=== PATIENT | male | born 1945 | race Caucasian/White ===

== ENCOUNTER 2016-10-07 18:26 | Emergency (ER) | payer BC, MEDICARE ==
[~2016-10-07] VITALS: Ht 167.6 cm; Wt 108.0 kg
[~2016-10-07 18:26] MED LIST: AMLO5TAB22 PO; ASPI81TA82 PO; ATOR40TA PO; CARV6.25 PO; COZA50TA PO; FENO1TAB76 PO; GLUC2.5T2 PO; ISOS30TA3 PO; LORTA5 PO; OMEG5CAP PO; RIVA10 PO; SAW450CA2 PO; TAB-TAB PO; TICA90 PO; TRAV0.00 EACH EYE; Z.0.WALKERFRONT
[2016-10-07 18:30] VITALS: BP 210/99; PULSE 87; RESP 20; TEMP 99.4; O2SAT 97
--- NOTE | 2016-10-07 18:51 | PD ---
HPI . right leg pain since Monday Chief Complaint: right leg pain Time Seen by Provider: 18:51 Travel History International Travel<30 days: No Contact w/Intl Traveler<30days: No Traveled to known affect area: No History of Present Illness HPI 71-year-old male with history of hypertension, hyperlipidemia and diabetes here with complaints of right leg pain since Monday. Patient tells me that he got into some type of unknown plant on Monday and thinks that it is causing irritation to his right lower extremity. He tells me that he saw his primary care provider Dr. Sanjiv Macdonald and was given muscle relaxers and oxycodone, which are not providing any relief. Patient reports that his pain is 10/10 and located mainly in the right anterior lower extremity. The area is tender to touch. He also admits that there was some increased warmth over the past day, but has since seemed to improve. He also has elevated blood pressure. He denies any rash, fever, chills, nausea, vomiting, abdominal pain, chest pain or shortness of breath. He has no other complaints. He has not traveled long distances recently. PFSH Past Medical History Blood Disorders: No Cancer: No Cardiovascular Problems: Yes (STENTS) Chemotherapy: No Chest Pain: No Diabetes: Yes Endocrine: No Gastrointestinal Disorders: No Glaucoma: Yes Genitourinary: No Hepatitis: No Hiatal Hernia: Yes Hypertension: Yes Immune Disorder: No Musculoskeletal: Yes (ARTHRITIS, BACK ISSUES) Neurologic: Yes (TIA) Psychiatric: No Reproductive: No Respiratory: Yes (SLEEP APNEA/ CPAP) Integumentary: No Radiation Therapy: No Thyroid Disease: No Past Surgical History Abdominal Surgery: Yes (UMB. HERNIA REP., APPY) AICD: No Body Medical Devices: CARDIAC STENTS Joint Replacement: No Pacemaker: No Social History Alcohol Use: Yes Tobacco Use: Yes (FORMER) Substance Use: No Allergies-Medications (Allergen,Severity, Reaction): Coded Allergies: No Known Allergies (Verified , 10/07/16) Reported Meds & Prescriptions Reported Meds & Active Scripts Active Xarelto Starter Pack 15 & 20 mg (Rivaroxaban) 1 Tab Tab 1 Tab PO DIRECTED 30 Days Reported Saw [place] 500 Mg Capsule 450 Travatan Z Opth Drops (Travoprost) 0.004 % Soln 1 Drop EACH EYE HS Fish Oil ([place]-3 Fatty Acids) 1,000 Mg Cap 1,200 Aspirin 81 (Aspirin) 81 Mg Tabdr 81 Mg PO DAILY Atorvastatin (Atorvastatin Calcium) 80 Mg Tab 80 Mg PO HS Glyburide-Metformin 2.5-500 Mg Tab 1 Tab PO DAILY Take with a meal Isosorbide Mononitrate ER (Isosorbide Mononitrate) 30 Mg Dean 30 Mg PO DAILY Clopidogrel (Clopidogrel Bisulfate) 75 Mg Tab 75 Mg PO DAILY Amlodipine (Amlodipine Besylate) 5 Mg Tab 5 Mg PO DAILY Carvedilol 6.25 Mg Tab 6.25 Mg PO BID Review of Systems General / Constitutional: No: Fever Eyes: No: Visual changes HENT: No: Headaches Cardiovascular: No: Chest Pain or Discomfort Respiratory: No: Shortness of Breath Gastrointestinal: No: Abdominal Pain Genitourinary: No: Dysuria Musculoskeletal: Positive: Pain (right lower ext.) Skin: No Rash Neurologic: No: Weakness Psychiatric: No: Depression Endocrine: No: Polydipsia Hematologic/Lymphatic: No: Easy Bruising Physical Exam Narrative GENERAL: AAO x 3, no acute distress, Well-nourished, well-developed patient. SKIN: Warm and dry. No visible rashes or bruising. No visible rash and to the right lower extremity. HEAD: Normocephalic and atraumatic. EYES: No scleral icterus. No injection or drainage. EOM intact, PERRLA ENT: No nasal drainage noted. Mucous membranes pink. Airway patent. NECK: Supple, trachea midline. No JVD. CARDIOVASCULAR: Regular rate and rhythm without murmurs, gallops, or rubs. RESPIRATORY: Breath sounds equal bilaterally. No accessory muscle use. No rhonchi or rales. GASTROINTESTINAL: Abdomen soft, non-tender, nondistended. EXTREMITIES: No cyanosis or edema. Right lower extremity calf circumference is larger compared to left, there is slight increase in warmth of the right lower extremity, pedal pulses intact bilaterally. Sensation normal bilaterally. Strength is normal bilaterally in the lower extremities. There is some tenderness in the popliteal fossa on the right lower extremity. BACK: No obvious deformity. No CVA tenderness. NEURO: CN II-12 intact, double end sewer strength normal b/l, UE and LE 5/5, no focal deficits PSYCH: AAO x 3, normal affect. Data Data Last Documented VS Vital Signs Date Time Temp Pulse Resp B/P Pulse Ox O2 Delivery O2 Flow Rate FiO2 10/07/16 22:25 84 18 171/82 99 Room Air 10/07/16 18:30 99.4 Orders Complete Blood Count With Diff (10/07/16 18:51) Comprehensive Metabolic Panel (10/07/16 18:51) Lactic Acid Sepsis Protocol (10/07/16 18:51) Urinalysis - C+S If Indicated (10/07/16 18:51) Blood Culture (10/07/16 18:51) Chest, Single Ap (10/07/16 18:51) Blood Glucose (10/07/16 18:51) Ecg Monitoring (10/07/16 18:51) Iv Access Insert/Monitor (10/07/16 18:51) Oximetry (10/07/16 18:51) Oxygen Administration (10/07/16 18:51) Us Leg Venous Doppler (10/07/16 18:51) Morphine Inj (Morphine Inj) (10/07/16 19:30) Rivaroxaban (Xarelto) (10/07/16 22:00) Labs Laboratory Tests Test 10/07/16 19:20 White Blood Count 11.8 TH/MM3 Red Blood Count 5.02 MIL/MM3 Hemoglobin 14.3 GM/DL Hematocrit 42.5 % Mean Corpuscular Volume 84.6 FL Mean Corpuscular Hemoglobin 28.5 PG Mean Corpuscular Hemoglobin 33.6 % Concent Red Cell Distribution Width 13.8 % Platelet Count 179 TH/MM3 Mean Platelet Volume 9.4 FL Neutrophils (%) (Auto) 75.0 % Lymphocytes (%) (Auto) 12.8 % Monocytes (%) (Auto) 10.2 % Eosinophils (%) (Auto) 1.8 % Basophils (%) (Auto) 0.2 % Neutrophils # (Auto) 8.9 TH/MM3 Lymphocytes # (Auto) 1.5 TH/MM3 Monocytes # (Auto) 1.2 TH/MM3 Eosinophils # (Auto) 0.2 TH/MM3 Basophils # (Auto) 0.0 TH/MM3 CBC Comment DIFF FINAL Differential Comment Sodium Level 137 MEQ/L Potassium Level 3.9 MEQ/L Chloride Level 103 MEQ/L Carbon Dioxide Level 24.8 MEQ/L Anion Gap 9 MEQ/L Blood Urea Nitrogen 20 MG/DL Creatinine 1.13 MG/DL Estimat Glomerular Filtration 64 ML/MIN Rate Random Glucose 134 MG/DL Lactic Acid Level 1.5 mmol/L Calcium Level 9.6 MG/DL Total Bilirubin 0.8 MG/DL Aspartate Amino Transf 68 U/L (AST/SGOT) Alanine Aminotransferase 57 U/L (ALT/SGPT) Alkaline Phosphatase 97 U/L Total Protein 7.9 GM/DL Albumin 3.9 GM/DL MDM Medical Decision Making Medical Screen Exam Complete: Yes Emergency Medical Condition: Yes Medical Record Reviewed: Yes Differential Diagnosis Agee cyst, DVT, cellulitis, allergic reaction Narrative Course 71-year-old male here with complaints of right lower extremity pain since Monday. On examination he does have a larger circumference of this right lower extremities compared to left. There is tenderness in the area. Workup is in progress. I've ordered labs and ultrasound. Patient could have a DVT versus allergic reaction versus Agee cyst. His blood pressure is elevated, but this is likely related to his pain that he reports is 10/10. I have provided him some morphine here in the emergency department. Case has been discussed with my attending physician Dr. Townsend. Venous Doppler of the lower extremity appreciated. Labs reviewed and appreciated. Mild elevation of WBC, which is likely reactive. I do not suspect infection. Laboratory Tests Test 10/07/16 19:20 White Blood Count 11.8 TH/MM3 Red Blood Count 5.02 MIL/MM3 Hemoglobin 14.3 GM/DL Hematocrit 42.5 % Mean Corpuscular Volume 84.6 FL Mean Corpuscular Hemoglobin 28.5 PG Mean Corpuscular Hemoglobin 33.6 % Concent Red Cell Distribution Width 13.8 % Platelet Count 179 TH/MM3 Mean Platelet Volume 9.4 FL Neutrophils (%) (Auto) 75.0 % Lymphocytes (%) (Auto) 12.8 % Monocytes (%) (Auto) 10.2 % Eosinophils (%) (Auto) 1.8 % Basophils (%) (Auto) 0.2 % Neutrophils # (Auto) 8.9 TH/MM3 Lymphocytes # (Auto) 1.5 TH/MM3 Monocytes # (Auto) 1.2 TH/MM3 Eosinophils # (Auto) 0.2 TH/MM3 Basophils # (Auto) 0.0 TH/MM3 CBC Comment DIFF FINAL Differential Comment Sodium Level 137 MEQ/L Potassium Level 3.9 MEQ/L Chloride Level 103 MEQ/L Carbon Dioxide Level 24.8 MEQ/L Anion Gap 9 MEQ/L Blood Urea Nitrogen 20 MG/DL Creatinine 1.13 MG/DL Estimat Glomerular Filtration 64 ML/MIN Rate Random Glucose 134 MG/DL Lactic Acid Level 1.5 mmol/L Calcium Level 9.6 MG/DL Total Bilirubin 0.8 MG/DL Aspartate Amino Transf 68 U/L (AST/SGOT) Alanine Aminotransferase 57 U/L (ALT/SGPT) Alkaline Phosphatase 97 U/L Total Protein 7.9 GM/DL Albumin 3.9 GM/DL Last Impressions Lower Extremity Ultrasound 10/07/161850 Signed Impressions: Service Date/Time: Friday, October 07, 2016 19:45 - CONCLUSION: 1. Thrombus is limited to partially occlusive thrombus the right peroneal vein. The remainder of the deep veins are patent in the right lower extremity. Prieto Velazquez MD Chest X-Ray 10/07/161850 Signed Impressions: Service Date/Time: Friday, October 07, 2016 19:04 - CONCLUSION: No acute disease. Prieto Velazquez MD Patient has not been on Xarelto nor has he failed outpatient therapy. He was on Xarelto years ago when he received a knee replacement. He is familiar with the drug and how to use it. We will provide him with a dose of Xarelto here in the emergency department and sent him home with a starter pack. He has been advised to follow-up with his primary care provider. Case has been discussed with my attending Dr. Townsend and we are both in agreement. Patient verbalized understanding of instructions, questions were answered, and thanked me for their care. I advised them if their condition worsens, please return to the nearest emergency room for further care. Diagnosis Primary Impression: DVT (deep venous thrombosis) Qualified Code: I82.401 - Acute deep vein thrombosis (DVT) of right lower extremity, unspecified vein Additional Impression: Right leg pain Patient Instructions: General Instructions Additional Instructions: Please return to emergency department if your symptoms return or worsen. Follow up with your primary care provider. Take medications as prescribed. Follow-up with your primary care provider as we discussed. Return to the emergency department for any worsening of your condition. Scripts Rivaroxaban Starter Pack 15 & 20 mg (Xarelto Starter Pack 15 & 20 mg)1 Tab Tab1 Tab PO DIRECTED 30 Days Ref 0 Prov:Brayan Alves MD 10/07/16 Disposition: 01 DISCHARGE HOME Condition: Stable Marietta Awan Oct 07, 2016 18:51
--- NOTE | 2016-10-07 19:23 | RADRPT ---
EXAM DATE/TIME: 10/07/2016 19:04 [facility] COMPARISON: No previous studies available for comparison. INDICATIONS : Cough and shortness of breath. MEDICAL HISTORY : None. SURGICAL HISTORY : 4 cardiac stents. ENCOUNTER: Initial ACUITY: 1 day PAIN SCORE: Non-responsive. LOCATION: chest FINDINGS: A single view of the chest demonstrates the lungs to be symmetrically aerated without evidence of mas s, infiltrate or effusion. The cardiomediastinal contours are unremarkable. Osseous structures are intact. CONCLUSION: No acute disease. Prieto Velazquez MD on October 07, 2016 at 19:21 Board Certified Radiologist. This report was verified electronically.
[2016-10-07] MEDS ORDERED: MORPHINE SULFATE 4 MG/ML INJ IV PUSH ONE (19:30)
[2016-10-07 19:50] LABS: AUTOMATED NEUTROPHIL # 8.9 TH/MM3 (1.8-7.7); BASOPHIL % 0.2 % (0.0-2.0); EOSINOPHIL # 0.2 TH/MM3 (0-0.4); EOSINOPHIL % 1.8 % (0.0-4.0); HEMATOCRIT 42.5 % (39.0-51.0); HEMO FLAGS DIFF FINAL; LYMPH % 12.8 % (9.0-44.0); LYMPHOCYTE # 1.5 TH/MM3 (1.0-4.8); MEAN CELL VOLUME 84.6 FL (80.0-100.0); MEAN CORPUSCULAR HEMOGLOBIN 28.5 PG (27.0-34.0); MEAN CORPUSCULAR HGB CONC 33.6 % (32.0-36.0); MONO % 10.2 % (0.0-8.0); PLATELET COUNT 179 TH/MM3 (150-450); RED BLOOD COUNT 5.02 MIL/MM3 (4.50-5.90); RED CELL DISTRIBUTION WIDTH 13.8 % (11.6-17.2); WHITE BLOOD COUNT 11.8 TH/MM3 (4.0-11.0)
[2016-10-07 20:00] VITALS: BP 192/97; PULSE 84; RESP 20; O2SAT 100
[2016-10-07 20:09] LABS: ALT (GPT) 57 U/L (12-78); ANION GAP 9 MEQ/L (5-15); AST (GOT) 68 U/L (15-37); BICARBONATE 24.8 MEQ/L (21.0-32.0); BLOOD UREA NITROGEN 20 MG/DL (7-18); CHLORIDE 103 MEQ/L (98-107); GLOMERULAR FILTRATION RATE 64 ML/MIN (>89); POTASSIUM 3.9 MEQ/L (3.5-5.1); SODIUM (NA) 137 MEQ/L (136-145)
[2016-10-07 20:12] LABS: ALKALINE PHOSPHATASE 97 U/L (45-117); TOTAL BILIRUBIN ADULT 0.8 MG/DL (0.2-1.0)
[2016-10-07 21:15] VITALS: BP 184/92; PULSE 90; RESP 18; O2SAT 98
--- NOTE | 2016-10-07 21:34 | RADRPT ---
EXAM DATE/TIME: 10/07/2016 19:45 [facility] COMPARISON: No previous studies available for comparison. INDICATIONS : Right leg pain. MEDICAL HISTORY : Hypertension. Glaucoma. Transient ischemic attack. Cerebrovascular accident. Ulcer. Hernia, hiatal. Diabetes. SURGICAL HISTORY : Appendectomy. Umbilical hernia repair. ENCOUNTER: Initial ACUITY: 4 - 6 days PAIN SCORE: 8/10 LOCATION: Right leg. TECHNIQUE: Venous ultrasound of the leg was performed from the inguinal ligament to the proximal calf. Real-elisabeth e, color Doppler and spectral tracing, compression and augmentation techniques were used. FINDINGS: The examination is positive for nonocclusive thrombus in the right peroneal vein. Remainder of the de ep veins are patent. No superficial thrombus. CONCLUSION: 1. Thrombus is limited to partially occlusive thrombus the right peroneal vein. The remainder of the deep veins are patent in the right lower extremity. Prieto Velazquez MD on October 07, 2016 at 21:30 Board Certified Radiologist. This report was verified electronically.
[2016-10-07] MEDS ORDERED: CARV6.252 PO (21:58)
[2016-10-07] MEDS ORDERED: ISOS30TA3 PO (21:58)
[2016-10-07] MEDS ORDERED: ASPI-110 PO (21:58)
[2016-10-07] MEDS ORDERED: CLOP75TA PO (21:58)
[2016-10-07] MEDS ORDERED: AMLO5TAB2 PO (21:58)
[2016-10-07] MEDS ORDERED: FISH1000 (21:58)
[2016-10-07] MEDS ORDERED: GLYB1TAB93 PO (21:58)
[2016-10-07] MEDS ORDERED: SAW500CA (21:58)
[2016-10-07] MEDS ORDERED: TRAV0.00 EACH EYE (21:58)
[2016-10-07] MEDS ORDERED: ATOR1TAB18 PO (21:58)
[2016-10-07] MEDS ORDERED: RIVAROXABAN 15 MG TAB PO ONE (22:00)
[2016-10-07] MEDS ORDERED: RIVA1TAB PO (22:12)
[2016-10-07 22:25] VITALS: BP 171/82; PULSE 84; RESP 18; O2SAT 99
== END 2016-10-07 22:45 | disposition home or self-care (01) ==
LOC: NEPC 18:26
DX: I82.401 Acute embolism and thrombosis of unspecified deep veins of right lower extremity (principal); I10 Essential (primary) hypertension; Z79.01 Long term (current) use of anticoagulants; Z79.82 Long term (current) use of aspirin; Z87.891 Personal history of nicotine dependence
CPT/HCPCS: 71010; 80053; 83605; 85025; 87040; 93971; 96374; 99285; J2270

== ENCOUNTER 2017-05-03 05:16 | Inpatient (IN) | payer BC, MEDICARE ==
--- NOTE | 2017-04-28 16:27 | MH ---
cc: MERI JERNIGAN DATE OF ADMISSION: 05/03/2017 ADMITTING DIAGNOSIS: 1. Severe osteoarthritis of the right hip. 2. Pain right hip. 3. 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 4. Gait disturbance. HISTORY OF PRESENT ILLNESS: The patient is a 72-year-old white male who has experienced pain of his right hip of at least one year duration. He had associated the onset of his symptoms secondary to a fall which occurred at home where after he was able to arise and ambulate independently. There was no immediate pain noted and the patient did not seek any initial evaluation but did note some soreness that he localized to the anterior aspect of his hip. His symptoms tended to wax and wane over the following few months during which time he was taking Tylenol for pain relief. He presented to the undersigned physician in August of this past year noting lingering pain about the hip area at which time x-ray studies were completed identifying moderate degenerative changes of the hip joint with significant narrowing of the joint space but no acute bony abnormality noted. The patient was diagnosed as having osteoarthritis of his right hip for which treatment alternatives were reviewed. He was encouraged to utilize Extra-Strength Tylenol noting that his current medications had included Plavix. He continued to conform to conservative management thereafter but returned to the office in February of 2017 reporting that with the passage of time he was becoming progressively more symptomatic with pain that had begun to interfere with all ambulatory activities. He had continued to use Tylenol for pain management but felt that he was at a point in time where he was needing to consider more definitive course of treatment. Current x-ray studies did reveal significant degenerative changes with subtotal obliteration of the joint space and early deformation of the femoral head. Findings and treatment options were reviewed. The involvement of total hip arthroplasty was outlined with emphasis being made that the decision to proceed with surgery would be left entirely to the patient's discretion. The patient considered his options in this regard and returned to the office in more recent follow-up indicating that because of the progressive nature of his pain and associated limitations, he was ready to proceed with surgery as previously discussed. In compliance with his wishes, he was scheduled for admission at this time in order that the above be accomplished. PAST MEDICAL HISTORY, HOSPITALIZATIONS AND SURGERIES: His past medical history, hospitalizations and surgeries have included: 1. Left total knee arthroplasty. 2. Insertion of cardiac stent. 3. Medical management for a TIA with no lingering deficit. 4. Appendectomy. 5. Colonoscopy. 6. Medical management for thrombophlebitis of his right lower extremity for which he was treated with Xarelto but has not required the medication for the past two months. 7. Heart disease. 8. Hypertension. 9. Elevated cholesterol. 10. Diabetes. MEDICATIONS: His current medications include: 1. Carvedilol 6.25 milligrams twice a day. 2. Amlodipine 5 milligrams daily. 3. Isosorbide 30 milligrams daily. 4. Losartan 100 milligrams daily. 5. Atorvastatin 40 milligrams daily. 6. Glyburide / Metformin 2.5-500 once daily. ALLERGIES: THE PATIENT DENIES ANY KNOWN DRUG ALLERGIES. REVIEW OF SYSTEMS: He does wear glasses. No headache, seizure or syncope. No sinus congestion or epistaxis. Auditory acuity intact. No tinnitus. No bleeding gums or dysphagia. Partial lower dentures. No cough, shortness of breath, upper respiratory infection, pneumonia, tuberculosis. No angina. He is status post cardiac stent insertion and medically managed for hypertension. Appetite is good. Bowel movements are regular. No hepatitis, gallbladder disease. He has a history of bleeding ulcers for which he has undergone previous transfusion treatment. No urinary tract infection. No kidney stones. History of BPH. Fracture of the fingers treated nonoperatively. Remaining review of systems unremarkable and noncontributory. FAMILY HISTORY: 46 years, is 71 years of age and noted to be in good health. Two sons indicated to be in good health. Family history is positive for hypertension, heart disease and stroke. 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 He completed a high school education. Denies active use of tobacco for more than 40 years but had been upwards to a three pack per day user for at least 15 years in this past. Denies ethanol consumption. PHYSICAL EXAMINATION: HEIGHT: 5 feet 6 inches. WEIGHT: 242 pounds. GENERAL: An alert, oriented and responsive 72-year-old white male who sits quietly upon examination table with no apparent distress. HEAD, EYES, EARS, NOSE, THROAT: Pupils are equally round and reactive to light. Extraocular movements full. Sclerae clear. External nares clear. External auditory canals clear. Dental bridge in place about the mandibular region. Mucous membranes pink and moist. Pharynx clear. NECK: Neck is supple. Active range of motion without appreciable pain. Carotid pulse bilaterally. Trachea midline. Thyroid without enlargement. LUNGS: Clear to auscultation and percussion. BACK: No CVA tenderness. No discomfort throughout the dorsal or lumbar spine. HEART: Regular rhythm. No murmur or gallop. ABDOMEN: Abdomen is soft, nontender. Bowel sounds present. RECTAL: Per primary care physician. EXTREMITIES: Right hip - There is no localizing tenderness along the lateral aspect of the right hip in a seated position there is restricted mobility of the hip joint especially involving flexion and internal rotation with pain at the extreme of motion. No sensation of crepitation or instability. Straight-leg raising unremarkable at 80 degrees. Bladimir sign positive. Distal sensory grossly intact. There is suggestion for limb length discrepancy with shortening of the right leg of at least 1 cm magnitude. Pronounced antalgic gait. NEUROLOGIC: Cranial nerves II-XII grossly intact. IMPRESSION: 1. Severe osteoarthritis of the right hip. 2. Pain right hip. 3. 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 4. Gait disturbance. PLAN: Right total hip arthroplasty. The nature of the planned surgical procedure, the potential complications and risks associated, the expectations of surgery and the consent form were thoroughly reviewed with the patient in the presence of his prior to admission to the hospital. Ta has indicated his full understanding regarding all of the above and given consent to proceed with treatment as outlined. Medical evaluation and clearance for surgery will be completed by his primary care physician, Dr. Sanjiv Spear and cardiology clearance per Dr. Sumner. MD NERY Doty/JCC /3:48 PM /4:09 PM
[~2017-05-03] VITALS: Ht 167.6 cm; Wt 109.5 kg
[~2017-05-03 05:16] MED LIST changes: +AMLO5TAB2 PO; -AMLO5TAB22 PO; +ASPI1TAB57 PO; -ASPI81TA82 PO; -ATOR40TA PO; +ATOR80TA45 PO; -CARV6.25 PO; +CARV6.252 PO; +CLOP75TA PO; -COZA50TA PO; -FENO1TAB76 PO; +FISH1000; -GLUC2.5T2 PO; +GLYB1TAB93 PO; -LORTA5 PO; -OMEG5CAP PO; -RIVA10 PO; -SAW450CA2 PO; +SAW500CA PO; -TAB-TAB PO; -TICA90 PO; -Z.0.WALKERFRONT
[2017-05-03] MEDS ORDERED: LACTATED RINGER'S 1000 ML IV PRN (05:45)
[2017-05-03] MEDS ORDERED: POVIDONE IODINE 7.5% SCRUB 118 ML BOTTLE TOPICAL SCH (05:45)
[2017-05-03] MEDS ORDERED: INSULIN HUMAN REGULAR 1,000 UNITS/10 ML VIAL SQ PRN (05:45)
[2017-05-03] MEDS ORDERED: METOPROLOL TARTRATE 25 MG TAB PO PRN (05:45)
[2017-05-03] MEDS ORDERED: POVIDONE IODINE 5% (ANTISEPSIS KIT) 4 APPLICATIONS EACH NARE PRN (05:45)
[2017-05-03] MEDS ORDERED: ceFAZolin 2 GM PREMIX 50 ML IV SCH (05:45)
[2017-05-03] MEDS ORDERED: SODIUM CHLORID 0.9% 500 ML IV PRN (05:45)
[2017-05-03] MEDS ORDERED: CHLORHEXIDINE GLUCONATE 2 % 1 PACK (2 CLOTHS) TOPICAL PRN (05:45)
[2017-05-03] MEDS ORDERED: ceFAZolin INJ 1,000 MG VIAL ONE (05:56)
[2017-05-03] MEDS ORDERED: TRANEXAMIC ACID 1 GM PRIOR TO PROCEDURE IV SCH ×2 (07:00)
[2017-05-03] MEDS ORDERED: DO NOT ADM ANY ANTICOAGULANT DRUGS PRN (09:29)
[2017-05-03] MEDS ORDERED: MORPHINE SULFATE 4 MG/ML INJ ONE (09:38)
[2017-05-03] MEDS ORDERED: ACETAMINOPHEN 325 MG TAB PO PRN (09:45)
[2017-05-03] MEDS ORDERED: MORPHINE SULFATE 30 MG/30 ML PCA IV SCH (09:45)
[2017-05-03] MEDS ORDERED: NALOXONE HCL 0.4 MG/ML AMP IV PUSH PRN (09:45)
[2017-05-03] MEDS ORDERED: ACETAMINOPHEN/HYDROcodone 325 MG/5 MG TAB PO PRN (09:45)
[2017-05-03] MEDS: DEXT 5%-NACL 0.45% 1000 ML INJ 1,000 ML IV SCH ×3 (09:45→21:00)
[2017-05-03] MEDS ORDERED: Post-op Orders (for Pharmacy) XX ONE (10:00)
[2017-05-03] MEDS ORDERED: ONDANSETRON HCL 4 MG/2 ML VIAL IVP PRN (10:00)
[2017-05-03] MEDS ORDERED: MISCELLANEOUS PHARMACY INFORMATION XX SCH (10:00)
[2017-05-03] MEDS ORDERED: TRANEXAMIC ACID 1 GM POST-OP IV SCH ×2 (10:00)
[2017-05-03] MEDS ORDERED: TRANEXAMIC ACID INJ 1,000 MG in SODIUM CHLORIDE 0.9% INJ 100 ML IV SCH (10:00)
[2017-05-03] MEDS ORDERED: *morphine SULFATE 4 MG/ML PERIprocedure ONLY ONE (10:07)
--- NOTE | 2017-05-03 10:12 | RADRPT ---
EXAM DATE/TIME: 05/03/2017 09:36 [facility] COMPARISON: No previous studies available for comparison. INDICATIONS : Post-op right hip arthroplasty. MEDICAL HISTORY : Hypertension. Glaucoma. Transient ischemic attack. Cerebrovascular accident. Ulcer. Hernia, hiatal. D iabetes. SURGICAL HISTORY : Appendectomy. Umbilical hernia repair. ENCOUNTER: Initial ACUITY: 1 day PAIN SCORE: 0/10 LOCATION: Right hip FINDINGS: Single frontal view of the right hip status post total hip arthroplasty demonstrates soft tissue gas about the right hip. The arthroplasty hardware is in normal alignment. CONCLUSION: Postsurgical changes from right total hip arthroplasty. Aneesh Urrutia MD on May 03, 2017 at 10:10 Board Certified Radiologist. This report was verified electronically.
--- NOTE | 2017-05-03 10:14 | MP ---
cc: MERI WILKERSON DATE OF SURGERY 05/03/2017 PREOPERATIVE DIAGNOSIS Severe osteoarthritis of the right hip pain right hip, limb length discrepancy with shortening right leg and gait disturbance. POSTOPERATIVE DIAGNOSIS Severe osteoarthritis of the right hip pain right hip, limb length discrepancy with shortening right leg and gait disturbance. PROCEDURE Right total hip arthroplasty. SURGEON Meri Wilkerson MD ANESTHESIA General endotracheal INDICATIONS This is a 72-year-old white male with right hip pain of at least one year duration. He had associated onset of his symptoms secondary to a fall which occurred at home where after he was able to arise and ambulate independently. There was no immediate pain. The patient did not seek any initial evaluation, but did note some lingering soreness that he localized on the anterior aspect of his hip. His symptoms tended to wax and wane over the following few months during which time he was taking Tylenol for pain relief. He presented to the undersigned physician in August of this past year noting lingering pain about the hip area at which time x-ray studies identified moderate degenerative changes of the hip joint with significant narrowing of the joint space, but no acute bony abnormality being appreciated. The patient was diagnosed as having osteoarthritis of his right hip for which treatment alternatives were reviewed. He began to use extra Strength Tylenol noting that his current medications included Plavix. He continued to conform to conservative management, but returned to the office in February of this past year reporting that with the passage of time he was becoming progressively more symptomatic with pain that had begun to interfere with all ambulatory activities. He has continued to take Tylenol for pain relief, but felt that he was at a point in time where he needed to consider a more definitive course of treatment. His current x-ray studies did reveal significant degenerative changes with subtotal obliteration of the joint space and early deformation of the femoral head. Findings and treatment options were reviewed. The involvement of total hip arthroplasty was outlined with emphasis being made that the decision to proceed with surgery would be left entirely to the patient's discretion. The patient considered his options in this regard and returned to the office on more recent follow-up indicating that due to his progressive pain and limitations regarding all activities of daily living, he was ready to proceed with surgery as had previously been discussed. In compliance with his wishes, he was scheduled for admission at this time in order that the above be accomplished. FORMAT Following the induction of satisfactory general anesthesia by endotracheal intubation as completed per the Department of Anesthesia, the patient was positioned upon the operating table in a left lateral decubitus fashion. The right hip and lower extremity proper were isolated with a U drape thereafter being prepped with Betadine solution and draped into a sterile field in the routine manner. Prior to initiation of the actual procedure, the standard time-out protocol was completed. All parameters were appropriately addressed and confirmed by operating room personnel. A standard posterolateral approach to the hip was initiated through a sharp skin incision and developed through underlying subcutaneous tissue with hemostasis maintained by electrocautery. By deepening dissection, the fascia overlying the gluteus musculature was exposed and thereafter sharply incised to the limits of the incision. The underlying gluteus fibers were divided with the Bovie on cutting current. Progressive dissection facilitated exposure of the short external rotator structures. Piriformis tendon was utilized and anatomical landmark and division of these structures was completed in a superior to inferior orientation and reflected medially exposing the posterior capsule. The sciatic nerve was protected. An L-shaped capsulotomy was accomplished through which a posterior dislocation of the femoral head was completed. Examination did reveal severe degenerative changes with significant erosion of articular cartilage, underlying subchondral bone exposed and hypertrophic bony reaction around the periphery of the femoral head. The femoral template was positioned for alignment orientation. The neck was scored and thereafter divided with power saw. The amputated segment being passed to the back table as surgical specimen. Attention was initially directed to the proximal femur. Cancellus bone was harvested. The tapered reamer was inserted for alignment orientation. Sequential rasping and broaching was accomplished from 7-9 mm. The calcar roz being utilized at the 9 mm stage. The 9 mm stem was determined to be a favorable fit. The trial component being removed, attention was redirected to the acetabulum. The labrum and reactive soft tissue were sharply excised. Progressive reaming was accomplished from 48-57 mm. The 58 trial shell positioned and determined to be satisfactory. All trial components being removed, the wound was copiously irrigated with pulsating antibiotic solution. Hemostasis maintained by electrocautery. Thereafter a 58 mm ring lock acetabular shell was firmly seated in approximately 45 degrees inclination to the horizontal and slight anteversion. A single 25 mm 6.5 cancellous screw was inserted superiorly to augment fixation. The permanent high wall acetabular liner was affixed to the acetabular shell. Attention returned to the proximal femur. The 9 mm trial femoral broach was repositioned and a trial reduction followed utilizing a 36 mm modular head with -6 mm neck length adapter. The hip readily reduced and was carried through a passive range of motion, stability being again demonstrated as previously described. An open dislocation was completed. The trial femoral components being removed, the canal was thoroughly irrigated and dried and thereafter the 9 mm echo biometric standard femoral stem was firmly seated to which a 36 mm ceramic head with -6 mm neck length adapter was attached. An open reduction completed and repeat range of motion again noted stability as previously described. Final irrigation was accomplished with hemostasis maintained. The posterior capsule was repaired with 0 Vicryl suture. Piriformis tendon and short external rotators structures were reapproximated in a similar manner. The fascia of the gluteus musculature was reapproximated with a running 0 Vicryl suture. The remaining portion of the wound was closed in layers in the routine manner skin margins being reapproximated with a running subcuticular 3-0 Vicryl suture over which Steri-Strips were applied. Xeroform gauze and a bulky dry sterile dressing were placed. The patient was repositioned into a supine orientation when abduction splint was attached, anesthesia was discontinued and he was thereafter transferred to a hospital bed and returned to recovery room in satisfactory condition having tolerated his operative procedure well. Estimated blood loss was approximately 150 cc as determined per anesthesia. All implants were of the [employer] policy writer. MD NERY Doty/ESTHER /9:18 AM /9:35 AM
[2017-05-03] MEDS ORDERED: PHENYLEPH/NS 1000 MCG/10 ML SYR IV ONE (12:00)
[2017-05-03] MEDS ORDERED: LACTATED RINGER'S 1000 ML INJ 1,000 ML IV ONE (12:00)
[2017-05-03] MEDS ORDERED: GLYCOPYRROLATE 1 MG/5 ML SYRINGE IV PUSH ONE (12:00)
[2017-05-03] MEDS ORDERED: ONDANSETRON HCL 4 MG/2 ML VIAL IV ONE (12:00)
[2017-05-03] MEDS ORDERED: NEOSTIGMINE 5 MG/5 ML SYRINGE IV PUSH ONE (12:00)
[2017-05-03] MEDS ORDERED: PROPOFOL 200 MG/20 ML AMP IV ONE (12:00)
[2017-05-03] MEDS ORDERED: STERILE WATER FOR INJECTION 20 ML VIAL IV ONE (12:00)
[2017-05-03] MEDS ORDERED: ROCURONIUM INJ 50 MG/5 ML SYRINGE IV PUSH ONE (12:00)
[2017-05-03] MEDS ORDERED: LIDOCAINE HCL 1% PF 5 ML SYRINGE OTHER ONE (12:00)
[2017-05-03] MEDS ORDERED: VECURONIUM BROMIDE 20 MG VIAL IV ONE (12:00)
[2017-05-03] MEDS ORDERED: DEXAMETHASONE SOD PHOS 4 MG/ML VIAL IV ONE (12:00)
[2017-05-03 12:30] VITALS: BP 134/69; PULSE 75; RESP 18; TEMP 97.8; O2SAT 98
--- NOTE | 2017-05-03 13:56 | PD.CONS ---
[facility] Request[facility] By Primary Care Physician Sanjiv Spear MD Diagnoses: History of Present Illness 72-year-old male with a history of hypertension, hyperlipidemia, diabetes, who is seen in postop care unit following elective right hip arthroplasty performed for osteoarthritis. Patient says he is feeling well. Denies any chest pain, shortness of breath, nausea, lightheadedness, dizziness. Denies any difficulty urinating. Most recent bowel movement was yesterday. Denies any recent medication changes. Patient does have history of TIA on past medical history, however denies any history of atrial fibrillation. Review of Systems Except as stated in HPI: all other systems reviewed are Neg Past Family Social History Allergies: Coded Allergies: No Known Allergies (Verified Allergy, Unknown, 05/02/17) Past Medical History Hypertension Diabetes Hyperlipidemia History of TIA History of thrombophlebitis of the right lower extremity. Previously treated with Xarelto History of ulcer Sleep apnea using CPAP. Glaucoma Past Surgical History Left total knee arthroplasty Cardiac catheterization with stenting Appendectomy Colonoscopy Umbilical hernia repair Reported Medications Carvedilol 6.25 mg twice daily Amlodipine 5 mg daily Isosorbide 30 mg daily Losartan 100 mg by mouth daily Atorvastatin 40 mg daily Glyburide/metformin two-point 5500 once daily Plavix 75 mg daily. Family History Mother age 85 from unknown causes. Father at age 62 from presumed [place]. Social History Patient quit smoking in 1974. Patient drinks rarely. Denies any illicit drug use. Physical Exam Vital Signs Vital Signs Date Time Temp Pulse Resp B/P (MAP) Pulse Ox O2 Delivery O2 Flow Rate FiO2 05/03/17 12:30 97.8 75 18 134/69 (90) 98 05/03/17 11:00 68 17 130/61 (84) 100 05/03/17 10:15 59 12 138/63 (88) 100 05/03/17 10:00 61 12 147/66 (93) 100 05/03/17 09:45 12 05/03/17 09:45 67 19 178/77 (110) 99 05/03/17 09:30 69 19 151/67 (95) 99 Nasal Cannula 2 05/03/17 09:28 98.5 70 19 151/66 (94) 100 Nasal Cannula 2 05/03/17 06:15 98.5 75 20 162/82 (108) 98 Physical Exam GENERAL: This is a well-nourished, well-developed patient, in no apparent distress. Alert and oriented 3 SKIN: No rashes, ecchymoses or lesions. Cool and dry. HEAD: Atraumatic. Normocephalic. No temporal or scalp tenderness. EYES: Pupils equal round and reactive. Extraocular motions intact. No scleral icterus. No injection or drainage. ENT: Nose without bleeding, purulent drainage or septal hematoma. Throat without erythema, tonsillar hypertrophy or exudate. Uvula midline. Airway patent. NECK: Trachea midline. No JVD or lymphadenopathy. Supple, nontender, no meningeal signs. CARDIOVASCULAR: Regular rate and rhythm without murmurs, gallops, or rubs. RESPIRATORY: Clear to auscultation. Breath sounds equal bilaterally. No wheezes , rales, or rhonchi. GASTROINTESTINAL: Abdomen soft, non-tender, nondistended. No hepato-splenomegaly , or palpable masses. No guarding. MUSCULOSKELETAL: Extremities without clubbing, cyanosis, or edema. No joint tenderness, effusion, or edema noted. No calf tenderness. Negative Homans sign bilaterally. NEUROLOGICAL: Awake and alert. Cranial nerves II through XII intact. Motor and sensory grossly within normal limits. Five out of 5 muscle strength bilateral upper extremities. Postoperative hip not examined.. Normal speech. Assessment and Plan Assessment and Plan //Postoperative elective right hip arthroplasty on 05/03 = Postsurgical management as per surgical service Pain management as per surgical service Await return of bowel function. //CAD //Hypertension. =Blood pressure acceptable. Continue home medications. antiCoagulation as per surgical service = Recommend starting back on antiplatelet tomorrow. //Diabetes. Start on diabetic diet. Insulin sliding scale. Continue home by mouth medications. Continue to monitor. //Glaucoma. Chronic. Continue home drops. //History of TIA. Patient appears to have no history of atrial fibrillation. Denies atrial fibrillation. Continue anticoagulation as per orthopedic surgery. Follow-up with cardiology after discharge. Discussed Condition With patient, nurse Josse Louise MD May 03, 2017 13:56
[2017-05-03] MEDS: PCA - TOTAL MG MORPHINE DELIVERED PER SHIFT SCH ×2 (14:00→22:00)
[2017-05-03 15:54] VITALS: BP 149/76; PULSE 82; RESP 17; TEMP 96.5; O2SAT 95
[2017-05-03] MEDS: INSULIN ASPART SUPPLEMENTAL SCALE SQ SCH ×2 (17:00→20:58)
[2017-05-03] MEDS: CARVEDILOL 6.25 MG TAB PO SCH (20:57)
[2017-05-03] MEDS: DOCUSATE SODIUM 100 MG CAP PO PRN (20:57)
[2017-05-03] MEDS: LATANOPROST 0.005% OPHT SOLN 2.5 ML BTL EACH EYE SCH (20:58)
[2017-05-03] MEDS: ATORVASTATIN 80 MG TAB PO SCH (20:58)
[2017-05-03] MEDS ORDERED: ZOLPIDEM TARTRATE 5 MG TAB PO PRN (21:00)
[2017-05-03 21:10] VITALS: BP 157/74; PULSE 79; RESP 16; TEMP 98.8; O2SAT 96
[2017-05-04] VITALS (7 sets, daily range): BP systolic 122–172; BP diastolic 63–79; PULSE 77–92; RESP 18; TEMP 98.3–99.3; O2SAT 93–95
[2017-05-04] MEDS ORDERED: ENALAPRILAT 2.5 MG/2 ML VIAL IV PUSH ONE (04:30)
[2017-05-04] MEDS: ACETAMINOPHEN/HYDROcodone 325 MG/5 MG TAB PO PRN ×2 (04:50→12:19)
[2017-05-04] MEDS: DEXT 5%-NACL 0.45% 1000 ML INJ 1,000 ML IV SCH ×3 (04:51→19:16)
[2017-05-04 05:45] LABS: HEMATOCRIT 36.9 % (39.0-51.0); HEMOGLOBIN 12.3 GM/DL (13.0-17.0)
[2017-05-04] MEDS: PCA - TOTAL MG MORPHINE DELIVERED PER SHIFT SCH ×4 (06:00→19:16)
[2017-05-04] MEDS ORDERED: HYDR-3516 PO (06:06)
--- NOTE | 2017-05-04 06:09 | HHI.FF ---
Face to Face Verification Diagnosis: (1) Degenerative joint disease of right hip Physical Therapy Gait training Hip: Total hip, Protocol: Right, Abduction pillow while in bed Right LE Weight Bearing: WB as tolerated Right LE Range of Motion: Active ROM Nursing Dressing Changes: Daily dressing change I have seen patient Ta Nunez on 05/04/17. My clinical findings support the need for the requested home health care services because: Limited ability to care for self High risk of falls I certify that my clinical findings support that this patient is homebound because: Post-op weakness Unsteady gait/balance Unsafe to leave home unassisted Gonzalez Wilkerson MD May 04, 2017 06:09
[2017-05-04] MEDS ORDERED: ADJUSTABLE COMM1 MIS (06:12)
[2017-05-04] MEDS ORDERED: WALKER WHEELS/F1 MIS (06:12)
[2017-05-04] MEDS: INSULIN ASPART SUPPLEMENTAL SCALE SQ SCH ×4 (08:00→21:00)
[2017-05-04] MEDS ORDERED: GLYBURIDE METFORMIN PO SCH (09:00)
[2017-05-04] MEDS: metFORMIN HCL 500 MG TAB PO SCH (09:15)
[2017-05-04] MEDS: DOCUSATE SODIUM 100 MG CAP PO PRN ×2 (09:15→20:20)
[2017-05-04] MEDS: CARVEDILOL 6.25 MG TAB PO SCH ×2 (09:15→20:20)
[2017-05-04] MEDS: amLODIPine BESYLATE 5 MG TAB PO SCH (09:15)
[2017-05-04] MEDS: glyBURIDE 2.5 MG TAB PO SCH (09:15)
[2017-05-04] MEDS: RIVAROXABAN 10 MG TAB PO SCH (09:16)
[2017-05-04] MEDS: ISOSORBIDE MONONITRATE 30 MG CR TAB (IMDUR) PO SCH (09:16)
[2017-05-04 11:23] LABS: BICARBONATE 31.3 MEQ/L (21.0-32.0); CALCIUM 8.8 MG/DL (8.5-10.1); CREATININE 1.08 MG/DL (0.60-1.30)
[2017-05-04] MEDS: LATANOPROST 0.005% OPHT SOLN 2.5 ML BTL EACH EYE SCH (19:34)
[2017-05-04] MEDS: ATORVASTATIN 80 MG TAB PO SCH (20:20)
[2017-05-04] MEDS ORDERED: MAGNESIUM HYDROXIDE SUSP 30 ML CUP PO ONE (23:15)
[2017-05-04] MEDS ORDERED: DOCUSATE SODIUM 50 MG/SENNA 8.6 MG TAB PO ONE (23:15)
--- NOTE | 2017-05-04 23:17 | HHI.PR ---
Subjective Remarks Patient seen this morning. Says he feels comfortable. Denies any chest pain or shortness breath. Objective Vital Signs Date Time Temp Pulse Resp B/P (MAP) Pulse Ox O2 Delivery O2 Flow Rate FiO2 05/04/17 19:45 99.0 92 18 129/70 (89) 94 05/04/17 16:43 98.3 80 18 122/69 (86) 93 05/04/17 11:26 98.3 77 18 130/63 (85) 94 05/04/17 08:00 98.6 84 18 136/67 (90) 94 05/04/17 06:34 85 138/73 (94) 05/04/17 06:00 17 05/04/17 03:50 99.0 82 18 172/79 (110) 94 05/04/17 00:39 99.3 84 18 164/77 (106) 95 I/O 05/04/17 05/04/17 05/04/17 05/05/17 05/05/17 05/05/17 07:00 15:00 23:00 07:00 15:00 23:00 Intake Total 560 ml 600 ml Output Total 450 ml Balance 560 ml 150 ml Intake Oral 360 ml 600 ml IV Total 200 ml Output Urine Total 450 ml # Voids 3 # Bowel Movements 0 0 Result Diagram: 05/04/17 0513 05/04/17 1002 Objective Remarks GENERAL: patient sitting up in bed. Appears comfortable. SKIN: Warm and dry. HEAD: Normocephalic. EYES: No scleral icterus. No injection or drainage. NECK: Supple, trachea midline. No JVD. CARDIOVASCULAR: Regular rate and rhythm without murmurs, gallops, or rubs. RESPIRATORY: Breath sounds equal bilaterally. No accessory muscle use. GASTROINTESTINAL: Abdomen soft, non-tender, nondistended. MUSCULOSKELETAL: No cyanosis, or edema. BACK: Nontender without obvious deformity. No CVA tenderness. A/P Assessment and Plan //Postoperative elective right hip arthroplasty on 05/03 = Postsurgical management as per surgical service Pain management as per surgical service Await return of bowel function. //Postoperative constipation. Laxatives ordered. //CAD //Hypertension. =Blood pressure acceptable. Continue home medications. antiCoagulation as per surgical service = Recommend starting back on antiplatelet tomorrow. = Will start back on aspirin tomorrow. //Diabetes. Start on diabetic diet. Insulin sliding scale. Continue home by mouth medications. Continue to monitor. = 05/04. Glucose elevated in the 300s a slight. Likely secondary to not being on diabetic diet at dinner last night. Improved today on sliding scale. Continue sliding scale. //Glaucoma. Chronic. Continue home drops. //History of TIA. Patient appears to have no history of atrial fibrillation. Denies atrial fibrillation. Continue anticoagulation as per orthopedic surgery. Follow-up with cardiology after discharge. Discharge Planning as per surgical service. Josse Louise MD May 04, 2017 23:17
[2017-05-05] MEDS ORDERED: MAGNESIUM HYDROXIDE SUSP 30 ML CUP PO PRN (00:15)
[2017-05-05 00:20] VITALS: BP 127/61; PULSE 88; RESP 19; TEMP 99.6; O2SAT 97
[2017-05-05] MEDS: PCA - TOTAL MG MORPHINE DELIVERED PER SHIFT SCH ×2 (07:28→21:30)
[2017-05-05] MEDS: INSULIN ASPART SUPPLEMENTAL SCALE SQ SCH ×4 (07:35→20:25)
[2017-05-05 08:00] VITALS: BP 143/69; PULSE 85; RESP 17; TEMP 98.3; O2SAT 95
[2017-05-05] MEDS: amLODIPine BESYLATE 5 MG TAB PO SCH (08:00)
[2017-05-05] MEDS: ASPIRIN EC 81 MG TABEC PO SCH (08:00)
[2017-05-05] MEDS: CARVEDILOL 6.25 MG TAB PO SCH ×2 (08:01→21:35)
[2017-05-05] MEDS: glyBURIDE 2.5 MG TAB PO SCH (08:01)
[2017-05-05] MEDS: RIVAROXABAN 10 MG TAB PO SCH (08:01)
[2017-05-05] MEDS: ISOSORBIDE MONONITRATE 30 MG CR TAB (IMDUR) PO SCH (08:01)
[2017-05-05] MEDS: metFORMIN HCL 500 MG TAB PO SCH (08:03)
[2017-05-05] MEDS: DEXT 5%-NACL 0.45% 1000 ML INJ 1,000 ML IV SCH ×3 (09:45→23:48)
[2017-05-05 11:54] VITALS: BP 123/67; PULSE 83; RESP 17; TEMP 98.3; O2SAT 94
[2017-05-05 16:00] VITALS: BP 113/62; PULSE 85; RESP 17; TEMP 98; O2SAT 95
[2017-05-05 20:00] VITALS: BP 148/69; PULSE 85; RESP 16; TEMP 98.2; O2SAT 98
[2017-05-05] MEDS: ATORVASTATIN 80 MG TAB PO SCH (21:35)
[2017-05-05] MEDS: ACETAMINOPHEN/HYDROcodone 325 MG/5 MG TAB PO PRN (21:35)
[2017-05-05] MEDS: LATANOPROST 0.005% OPHT SOLN 2.5 ML BTL EACH EYE SCH (21:36)
--- NOTE | 2017-05-05 23:52 | HHI.PR ---
Subjective Remarks Patient seen this morning. since he is feeling well. Had bowel movement this morning. No particular complaints. Objective Vital Signs Date Time Temp Pulse Resp B/P (MAP) Pulse Ox O2 Delivery O2 Flow Rate FiO2 05/05/17 22:10 18 05/05/17 21:59 Room Air 05/05/17 21:30 18 05/05/17 20:00 98.2 85 16 148/69 (95) 98 05/05/17 16:00 98.0 85 17 113/62 (79) 95 05/05/17 11:54 98.3 83 17 123/67 (85) 94 05/05/17 08:00 98.3 85 17 143/69 (93) 95 05/05/17 00:20 99.6 88 19 127/61 (83) 97 I/O 05/05/17 05/05/17 05/05/17 05/06/17 05/06/17 05/06/17 07:00 15:00 23:00 07:00 15:00 23:00 Intake Total 360 ml 480 ml Balance 360 ml 480 ml Intake Oral 360 ml 480 ml Bladder Scan Volume Amount 550 ml # Voids 2 4 # Bowel Movements 0 2 Result Diagram: 05/04/17 0513 05/04/17 1002 Objective Remarks GENERAL: patient sitting up in bed. Appears comfortable.no change on exam. SKIN: Warm and dry. HEAD: Normocephalic. EYES: No scleral icterus. No injection or drainage. NECK: Supple, trachea midline. No JVD. CARDIOVASCULAR: Regular rate and rhythm without murmurs, gallops, or rubs. RESPIRATORY: Breath sounds equal bilaterally. No accessory muscle use. GASTROINTESTINAL: Abdomen soft, non-tender, nondistended. MUSCULOSKELETAL: No cyanosis, or edema. BACK: Nontender without obvious deformity. No CVA tenderness. A/P Assessment and Plan //Postoperative elective right hip arthroplasty on 05/03 = Postsurgical management as per surgical service Pain management as per surgical service status post return of bowel function. //Postoperative constipation. status post return of bowel function. //CAD //Hypertension. =Blood pressure acceptable. Continue home medications. antiCoagulation as per surgical service = Recommend starting back on antiplatelet tomorrow. = continue aspirin. //Diabetes. Start on diabetic diet. Insulin sliding scale. Continue home by mouth medications. Continue to monitor. = 05/04. Glucose elevated in the 300s a slight. Likely secondary to not being on diabetic diet at dinner last night. Improved today on sliding scale. Continue sliding scale. =05/05. Blood sugars much improved. Continue to monitor. //Urinary retention. Patient with 1200 mL on post void residual bladder scan cefepime. Butt placed. Likely secondary to narcotics. Continue his Butt. Follow-up with urology as outpatient. Hopefully this improves off of pain meds over the next few days. Blood pressure is already low, not much room for adding Flomax. //Glaucoma. Chronic. Continue home drops. //History of TIA. Patient appears to have no history of atrial fibrillation. Denies atrial fibrillation. Continue anticoagulation as per orthopedic surgery. Follow-up with cardiology after discharge. Discharge Planning as per surgical service. Josse Louise MD May 05, 2017 23:52
[2017-05-06] VITALS: BP 112/62; PULSE 79; RESP 15; TEMP 98.5; O2SAT 94
[2017-05-06] MEDS: PCA - TOTAL MG MORPHINE DELIVERED PER SHIFT SCH ×4 (02:50→21:21)
[2017-05-06 07:59] VITALS: BP 155/81; PULSE 85; RESP 17; TEMP 97.7; O2SAT 97
[2017-05-06] MEDS: INSULIN ASPART SUPPLEMENTAL SCALE SQ SCH ×4 (08:00→21:00)
[2017-05-06] MEDS: CARVEDILOL 6.25 MG TAB PO SCH ×2 (09:21→21:13)
[2017-05-06] MEDS: RIVAROXABAN 10 MG TAB PO SCH (09:21)
[2017-05-06] MEDS: amLODIPine BESYLATE 5 MG TAB PO SCH (09:21)
[2017-05-06] MEDS: ASPIRIN EC 81 MG TABEC PO SCH (09:21)
[2017-05-06] MEDS: ISOSORBIDE MONONITRATE 30 MG CR TAB (IMDUR) PO SCH (09:21)
[2017-05-06] MEDS: metFORMIN HCL 500 MG TAB PO SCH (09:21)
[2017-05-06] MEDS: glyBURIDE 2.5 MG TAB PO SCH (09:21)
[2017-05-06] MEDS: DEXT 5%-NACL 0.45% 1000 ML INJ 1,000 ML IV SCH ×3 (09:45→21:13)
--- NOTE | 2017-05-06 10:40 | HHI.PR ---
Subjective Remarks In bed. Pain is controlled by meds. No n/v/d/c. Had a normal BM yesterday. No cp, sob, wheezing. No fever ro chills. Tolerates PT Objective Vitals Vital Signs Date Time Temp Pulse Resp B/P (MAP) Pulse Ox O2 Delivery O2 Flow Rate FiO2 05/06/17 07:59 97.7 85 17 155/81 (105) 97 05/06/17 02:50 18 05/06/17 00:00 98.5 79 15 112/62 (79) 94 05/05/17 22:10 18 05/05/17 21:59 Room Air 05/05/17 21:30 18 05/05/17 20:00 98.2 85 16 148/69 (95) 98 05/05/17 16:00 98.0 85 17 113/62 (79) 95 05/05/17 11:54 98.3 83 17 123/67 (85) 94 I/O 05/05/17 05/05/17 05/05/17 05/06/17 05/06/17 05/06/17 07:00 15:00 23:00 07:00 15:00 23:00 Intake Total 360 ml 480 ml 200 ml Output Total 1400 ml 400 ml Balance 360 ml 480 ml -1200 ml -400 ml Intake Oral 360 ml 480 ml 200 ml Output Urine Total 1400 ml 400 ml Bladder Scan Volume Amount 550 ml # Voids 2 4 # Bowel Movements 0 2 Result Diagram: 05/04/17 0513 05/04/17 1002 Imaging Last Impressions Hip X-Ray 05/03/17 0928 Signed Impressions: Service Date/Time: Wednesday, May 03, 2017 09:36 - CONCLUSION: Postsurgical changes from right total hip arthroplasty. Aneesh Urrutia MD Objective Remarks GENERAL: patient sitting up in bed. Appears comfortable.no change on exam. CARDIOVASCULAR: Regular rate and rhythm without murmurs, gallops, or rubs. RESPIRATORY: Breath sounds equal bilaterally. No accessory muscle use. GASTROINTESTINAL: Abdomen soft, non-tender, nondistended. MUSCULOSKELETAL: No cyanosis, or edema. BACK: Nontender without obvious deformity. No CVA tenderness. A/P Assessment and Plan //Postoperative elective right hip arthroplasty on 05/03 = Postsurgical management as per surgical service Pain management as per surgical service status post return of bowel function. //Postoperative constipation. status post return of bowel function. //CAD //Hypertension. =Blood pressure acceptable. Continue home medications. antiCoagulation as per surgical service = Recommend starting back on antiplatelet tomorrow. = continue aspirin. //Diabetes. Start on diabetic diet. Insulin sliding scale. Continue home by mouth medications. Continue to monitor. = 05/04. Glucose elevated in the 300s a slight. Likely secondary to not being on diabetic diet at dinner last night. Improved today on sliding scale. Continue sliding scale. =05/05. Blood sugars much improved. Continue to monitor. //Urinary retention. Patient with 1200 mL on post void residual bladder scan cefepime. Butt placed. Likely secondary to narcotics. Continue his Butt. Follow-up with urology as outpatient. Hopefully this improves off of pain meds over the next few days. Blood pressure is already low, not much room for adding Flomax. //Glaucoma. Chronic. Continue home drops. //History of TIA. Patient appears to have no history of atrial fibrillation. Denies atrial fibrillation. Continue anticoagulation as per orthopedic surgery. Follow-up with cardiology after discharge. Discharge Planning DC to snf Medically cleared for DC to follow up as OP with PCP and consultants Windy Mcadams MD May 06, 2017 10:40
[2017-05-06 11:44] VITALS: BP 133/67; PULSE 81; RESP 17; TEMP 98.8; O2SAT 97
[2017-05-06] MEDS: ACETAMINOPHEN/HYDROcodone 325 MG/5 MG TAB PO PRN (11:54)
[2017-05-06 15:49] VITALS: BP 146/74; PULSE 89; RESP 17; TEMP 99.1; O2SAT 96
[2017-05-06 20:00] VITALS: BP 122/67; PULSE 82; RESP 20; TEMP 98.7; O2SAT 94
[2017-05-06] MEDS: LATANOPROST 0.005% OPHT SOLN 2.5 ML BTL EACH EYE SCH (21:13)
[2017-05-06] MEDS: ATORVASTATIN 80 MG TAB PO SCH (21:13)
[2017-05-06 23:53] VITALS: BP 127/66; PULSE 77; RESP 19; TEMP 97.8; O2SAT 99
[2017-05-07] MEDS ORDERED: CALCIUM CARBONATE 500 MG CHEWABLE TAB CHEW PRN (01:00)
[2017-05-07 04:19] VITALS: BP 146/66; PULSE 76; RESP 20; TEMP 99.7; O2SAT 95
[2017-05-07 08:00] VITALS: BP 135/64; PULSE 77; RESP 17; TEMP 99.4; O2SAT 94
[2017-05-07] MEDS: INSULIN ASPART SUPPLEMENTAL SCALE SQ SCH ×4 (08:00→20:31)
[2017-05-07] MEDS: glyBURIDE 2.5 MG TAB PO SCH (08:28)
[2017-05-07] MEDS: amLODIPine BESYLATE 5 MG TAB PO SCH (08:28)
[2017-05-07] MEDS: ASPIRIN EC 81 MG TABEC PO SCH (08:28)
[2017-05-07] MEDS: ISOSORBIDE MONONITRATE 30 MG CR TAB (IMDUR) PO SCH (08:28)
[2017-05-07] MEDS: metFORMIN HCL 500 MG TAB PO SCH (08:28)
[2017-05-07] MEDS: RIVAROXABAN 10 MG TAB PO SCH (08:28)
[2017-05-07] MEDS: CARVEDILOL 6.25 MG TAB PO SCH ×2 (08:29→20:23)
[2017-05-07] MEDS: PCA - TOTAL MG MORPHINE DELIVERED PER SHIFT SCH ×3 (08:29→19:36)
[2017-05-07] MEDS: DEXT 5%-NACL 0.45% 1000 ML INJ 1,000 ML IV SCH ×3 (08:29→19:35)
[2017-05-07 12:07] VITALS: BP 131/66; PULSE 76; RESP 18; TEMP 98.4; O2SAT 93
--- NOTE | 2017-05-07 14:50 | HHI.PR ---
Subjective Remarks Patient waiting for placement. He stated that his insurance has not authorized SNF placement. He has no complaints today that he is doing well. His is at the bedside during the interview. Patient stated that he is tolerating oral intake and had bowel movements. Objective Vitals Vital Signs Date Time Temp Pulse Resp B/P (MAP) Pulse Ox O2 Delivery O2 Flow Rate FiO2 05/07/17 12:07 98.4 76 18 131/66 (87) 93 05/07/17 08:00 99.4 77 17 135/64 (87) 94 05/07/17 04:19 99.7 76 20 146/66 (92) 95 05/06/17 23:53 97.8 77 19 127/66 (86) 99 05/06/17 22:06 Room Air 05/06/17 21:11 18 05/06/17 20:00 98.7 82 20 122/67 (85) 94 05/06/17 15:49 99.1 89 17 146/74 (98) 96 I/O 05/06/17 05/06/17 05/06/17 05/07/17 05/07/17 05/07/17 07:00 15:00 23:00 07:00 15:00 23:00 Intake Total 480 ml 240 ml Output Total 400 ml 850 ml 250 ml 950 ml Balance -400 ml -370 ml -250 ml -710 ml Intake Oral 480 ml 240 ml Output Urine Total 400 ml 850 ml 250 ml 950 ml # Bowel Movements 0 Result Diagram: 05/04/17 0513 05/04/17 1002 Objective Remarks GENERAL: in NAD CARDIOVASCULAR: Regular rate and rhythm without murmurs, gallops, or rubs. RESPIRATORY: Breath sounds equal bilaterally. No accessory muscle use. GASTROINTESTINAL: Abdomen soft, non-tender, nondistended. Medications and IVs Current Medications Lactated Ringer's 1,000 ml @ 30 mls/hr Q24H PRN IV SEE LABEL COMMENTS Last administered on 05/03/17at 05:55; Start 05/03/17 at 05:45; Stop 05/06/17 at 05:44 ; Status DC Sodium Chloride 500 ml @ 30 mls/hr [id number] PRN IV SEE LABEL COMMENTS; Start at 05:45; Stop 05/06/17 at 05:44; Status DC Metoprolol Tartrate (Lopressor) [address] PRN PO SEE LABEL COMMENTS Last administered on 05/03/17at 06:15; Start 05/03/17 at 05:45; Stop 05/06/17 at 05:44 ; Status DC Povidone Iodine (Betadine 5% Antisepsis Kit) [address] PRN EACH NARE SEE LABEL COMMENTS Last administered on 05/03/17at 06:10; Start 05/03/17 at 05:45 ; Stop 05/06/17 at 05:44; Status DC Chlorhexidine Gluconate (Chlorhexidine 2% Cloth) [address] PRN TOPICAL SEE LABEL COMMENTS; Start 05/03/17 at 05:45; Stop 05/06/17 at 05:44; Status DC Insulin Human Regular (NovoLIN R INJ) See Protocol Table ... [address] PRN SQ SEE PROTOCOL TABLE; Start 05/03/17 at 05:45; Stop 05/03/17 at 13:31; Status DC Povidone Iodine (Betadine 7.5% Scrub) 1 applic ONCE TOPICAL Last administered on 05/03/17at 06:28; Start 05/03/17 at 05:45; Stop 05/06/17 at 05:44; Status DC Cefazolin Sodium/ Dextrose 50 ml @ 100 mls/hr [facility] IV Last administered on 05/03/17at 06:28; Start 05/03/17 at 05:45; Stop 05/06/17 at 05:44; Status DC Tranexamic Acid 1000 mg/Sodium Chloride 110 ml @ 220 mls/hr ONCE IV Last administered on 05/03/17at 06:30; Start 05/03/17 at 07:00; Stop 05/03/17 at 07:01 ; Status DC Tranexamic Acid 1000 mg/Sodium Chloride 110 ml @ 220 mls/hr ONCE IV ; Start at 10:00; Stop 05/03/17 at 10:00; Status DC Cefazolin Sodium (Ancef Inj) 2,000 mg STK-MED ONCE .ROUTE Last administered on 05/03/17at 08:00; Start 05/03/17 at 05:56; Stop 05/03/17 at 05:57; Status DC Dextrose/Sodium Chloride 1,000 ml @ 125 mls/hr Q8H IV Last administered on at 04:51; Start 05/03/17 at 09:45 Cefazolin Sodium 1000 mg/Sodium Chloride 100 ml @ 200 mls/hr Q6H IV Last administered on 05/04/17at 00:35; Start 05/03/17 at 12:00; Stop 05/04/17 at 00:29 ; Status DC Miscellaneous Information (Post-op Orders (for Pharmacy)) STAT ONCE XX ; Start 05/03/17 at 10:00; Stop 05/03/17 at 10:01; Status DC Rivaroxaban (Xarelto) 10 mg Q24H PO Last administered on 05/07/17at 08:28; Start 05/04/17 at 09:00 Miscellaneous Medication ([facility] [place] [facility] Pharmacy Information) UNSCH X1 XX ; Start 05/03 at 10:00; Stop 05/05/17 at 09:59; Status DC Acetaminophen/ Hydrocodone Bitart ([place] 5-325 Mg) 1 tab Q4H PRN PO PAIN LESS THAN 5 ON SCALE Last administered on 05/06/17at 11:54; Start 05/03/17 at 09:45 Acetaminophen/ Hydrocodone Bitart ([place] 5-325 Mg) 2 tab Q4H PRN PO PAIN SCALE 5 TO 10; Start 05/03/17 at 09:45 Acetaminophen (Tylenol) 650 mg Q6H PRN PO FEVER > 101; Start 05/03/17 at 09:45 Tranexamic Acid 1000 mg/Sodium Chloride 110 ml @ 200 mls/hr UNSCH X1 IV Last administered on 05/03/17at 09:50; Start 05/03/17 at 10:00; Stop 05/03/17 at 16:00 ; Status DC Ondansetron HCl (Zofran Inj) 4 mg Q6H PRN IVP NAUSEA OR VOMITING; Start at 10:00 Docusate Sodium (Colace) 100 mg BID PRN PO CONSTIPATION Last administered on at 20:20; Start 05/03/17 at 10:00 Zolpidem Tartrate (Ambien) 5 mg HS PRN PO SLEEP; Start 05/03/17 at 21:00 Naloxone HCl (Narcan Inj) 0.4 mg UNSCH PRN IV PUSH RESPIRATORY RATE LESS THAN 10; Start 05/03/17 at 09:45 Morphine Sulfate (Morphine 1 Mg/ ml TENTERING MACHINE OFF BEARER) 30 mg UNSCH IV Last administered on at 09:45; Start 05/03/17 at 09:45; Stop 05/05/17 at 09:44; Status DC TENTERING MACHINE OFF BEARER Dosage Infused (Pha) 1 Q8HR .XX Last administered on 05/04/17at 12:20; Start 05/03/17 at 14:00 Fentanyl Citrate (fentaNYL INJ) 100 mcg STK-MED ONCE .ROUTE ; Start 05/03/17 at 09:38; Stop 05/03/17 at 09:39; Status DC Morphine Sulfate (Morphine Inj) 8 mg STK-MED ONCE .ROUTE ; Start 05/03/17 at 09: 38; Stop 05/03/17 at 09:39; Status DC Morphine Sulfate (*morphine INJ PERIprocedure ONLY) 4 mg STK-MED ONCE .ROUTE Last administered on 05/03/17at 10:10; Start 05/03/17 at 10:07; Stop 05/03/17 at 10:08; Status DC Miscellaneous Information ALL NURSING DEPARTME... UNSCH PRN .XX SEE LABEL COMMENTS; Start 05/03/17 at 09:29; Stop 05/04/17 at 09:28; Status DC Insulin Aspart (NovoLOG SUPPLEMENTAL SCALE) 1 ACHS SLIDING SCALE SQ ; Start at 17:00 Amlodipine Besylate (Norvasc) 5 mg DAILY PO Last administered on 05/07/17at 08: 28; Start 05/04/17 at 09:00 Atorvastatin Calcium (Lipitor) 80 mg HS PO Last administered on 05/06/17at 21:13 ; Start 05/03/17 at 21:00 Carvedilol (Coreg) 6.25 mg BID PO Last administered on 05/07/17at 08:29; Start 05/03/17 at 21:00 Isosorbide Mononitrate (Imdur) 30 mg DAILY PO Last administered on 05/07/17at 08 :28; Start 05/04/17 at 09:00 Non-Formulary Medication 1 tab DAILY PO ; Start 05/04/17 at 09:00; Status UNV Metformin HCl (Glucophage) 500 mg DAILY PO Last administered on 05/07/17at 08:28 ; Start 05/04/17 at 09:00 Glyburide (Diabeta) 2.5 mg DAILY PO Last administered on 05/07/17at 08:28; Start 05/04/17 at 09:00 Latanoprost (Xalatan 0.005% Opth Soln) 1 drop HS EACH EYE Last administered on 05/06/17at 21:13; Start 05/03/17 at 21:00 Enalaprilat (Vasotec Inj) 2.5 mg ONCE ONCE IV PUSH Last administered on at 04:48; Start 05/04/17 at 04:30; Stop 05/04/17 at 04:31; Status DC Lactated Ringer's 1,000 ml @ As Directed STK-MED ONCE IV ; Start 05/03/17 at 12 :00; Stop 05/04/17 at 10:23; Status DC Lidocaine HCl (Xylocaine-Mpf 1% Inj) 5 ml STK-MED ONCE OTHER ; Start 05/03/17 at 12:00; Stop 05/04/17 at 10:23; Status DC Rocuronium [place] (Zemuron Inj) 50 mg STK-MED ONCE IV PUSH ; Start 05/03/17 at 12:00; Stop 05/04/17 at 10:23; Status DC Neostigmine Methylsulfate (Prostigmine Inj) 5 mg STK-MED ONCE IV PUSH ; Start at 12:00; Stop 05/04/17 at 10:23; Status DC Glycopyrrolate (Robinul Inj) 1 mg STK-MED ONCE IV PUSH ; Start 05/03/17 at 12:00 ; Stop 05/04/17 at 10:23; Status DC Phenylephrine HCl (Neosynephrine/ NS 1000 Mcg/10ml Syr) 1,000 mcg STK-MED ONCE IV ; Start 05/03/17 at 12:00; Stop 05/04/17 at 10:23; Status DC Vecuronium [place] (Norcuron 20 Mg Inj) 20 mg STK-MED ONCE IV ; Start 05/03/17 at 12:00; Stop 05/04/17 at 10:23; Status DC Dexamethasone Sodium Phosphate (Decadron Inj) 4 mg STK-MED ONCE IV ; Start 05/03 at 12:00; Stop 05/04/17 at 10:23; Status DC Ondansetron HCl (Zofran Inj) 4 mg STK-MED ONCE IV ; Start 05/03/17 at 12:00; Stop 05/04/17 at 10:23; Status DC Propofol (Diprivan 200 Mg/20 ml Inj) 200 mg STK-MED ONCE IV ; Start 05/03/17 at 12:00; Stop 05/04/17 at 10:23; Status DC Sterile Water (Sterile Water For Injection) 20 ml STK-MED ONCE IV ; Start at 12:00; Stop 05/04/17 at 10:23; Status DC Senna/Docusate Sodium (Samira-Colace) 2 tab ONCE ONCE PO Last administered on at 00:01; Start 05/04/17 at 23:15; Stop 05/04/17 at 23:25; Status DC Magnesium Hydroxide (Milk Of Magnesia Liq) 30 ml ONCE ONCE PO Last administered on 05/05/17at 00:01; Start 05/04/17 at 23:15; Stop 05/04/17 at 23:25 ; Status DC Aspirin (Ecotrin Ec) 81 mg DAILY PO Last administered on 05/07/17at 08:28; Start 05/05/17 at 09:00 Magnesium Hydroxide (Milk Of Magnesia Liq) 30 ml BID PRN PO MILD CONSTIPATION; Start 05/05/17 at 00:15 Calcium Carbonate (Tums Chew) 500 mg Q2H PRN CHEW indigestion Last administered on 05/07/17at 01:00; Start 05/07/17 at 01:00 A/P Assessment and Plan Severe OA -Postoperative elective right hip arthroplasty on 05/03 -Management per orthopedic patient is clear for discharge to the [facility]. Postoperative constipation. -Resolved. CAD/Hypertension. -Continue with home medication. Diabetes. - Start on diabetic diet. Insulin sliding scale. Continue home by mouth medications. Continue to monitor. Urinary retention. -Patient with 1200 mL on post void residual bladder scan cefepime. Butt placed. Likely secondary to narcotics. Continue his Butt. Follow-up with urology as outpatient. Hopefully this improves off of pain meds over the next few days. Blood pressure is already low, not much room for adding Flomax. Glaucoma. -Chronic. Continue home drops. History of TIA. - Patient appears to have no history of atrial fibrillation. Denies atrial fibrillation. Continue anticoagulation as per orthopedic surgery. Follow-up with cardiology after discharge. Discharge Planning Medically cleared for DC to follow up as OP with PCP and consultants Irma Garza MD May 07, 2017 14:50
[2017-05-07 16:00] VITALS: BP 145/72; PULSE 79; RESP 17; TEMP 98.3; O2SAT 95
[2017-05-07 19:05] VITALS: BP 139/69; PULSE 83; RESP 18; TEMP 98.1; O2SAT 95
[2017-05-07] MEDS: ATORVASTATIN 80 MG TAB PO SCH (20:23)
[2017-05-07] MEDS: LATANOPROST 0.005% OPHT SOLN 2.5 ML BTL EACH EYE SCH (20:23)
[2017-05-07 23:23] VITALS: BP 126/59; PULSE 75; RESP 18; TEMP 99.1; O2SAT 96
[2017-05-08] MEDS: INSULIN ASPART SUPPLEMENTAL SCALE SQ SCH ×2 (08:00→12:00)
[2017-05-08] MEDS: glyBURIDE 2.5 MG TAB PO SCH (08:21)
[2017-05-08] MEDS: ASPIRIN EC 81 MG TABEC PO SCH (08:22)
[2017-05-08] MEDS: amLODIPine BESYLATE 5 MG TAB PO SCH (08:22)
[2017-05-08] MEDS: RIVAROXABAN 10 MG TAB PO SCH (08:22)
[2017-05-08] MEDS: metFORMIN HCL 500 MG TAB PO SCH (08:22)
[2017-05-08] MEDS: CARVEDILOL 6.25 MG TAB PO SCH (08:22)
[2017-05-08] MEDS: ISOSORBIDE MONONITRATE 30 MG CR TAB (IMDUR) PO SCH (08:22)
[2017-05-08 09:00] VITALS: BP 134/66; PULSE 77; RESP 16; TEMP 97.9; O2SAT 98
[2017-05-08] MEDS ORDERED: CLOPIDOGREL 75 MG TAB PO SCH (09:00)
[2017-05-08] MEDS: DEXT 5%-NACL 0.45% 1000 ML INJ 1,000 ML IV SCH (09:45)
--- NOTE | 2017-05-08 14:52 | HHI.PR ---
Subjective Remarks Follow-up for medical management Patient is scheduled to be transferred to rehab facility today. Denies any bleeding. Plavix were restarted yesterday. Patient stated that he does have 4 stents in his heart. He denies any chest pain, shortness of breathing, palpitation, light his dizziness. He has no other complaints. Objective Vitals Vital Signs Date Time Temp Pulse Resp B/P (MAP) Pulse Ox O2 Delivery O2 Flow Rate FiO2 05/08/17 09:00 97.9 77 16 134/66 (88) 98 05/08/17 08:29 Room Air 05/07/17 23:23 99.1 75 18 126/59 (81) 96 05/07/17 20:25 Room Air 05/07/17 19:05 98.1 83 18 139/69 (92) 95 05/07/17 16:00 98.3 79 17 145/72 (96) 95 I/O 05/07/17 05/07/17 05/07/17 05/08/17 05/08/17 05/08/17 07:00 15:00 23:00 07:00 15:00 23:00 Intake Total 240 ml 960 ml 480 ml 360 ml Output Total 950 ml 400 ml 250 ml 300 ml Balance -710 ml 560 ml 230 ml 60 ml Intake Oral 240 ml 960 ml 480 ml 360 ml Output Urine Total 950 ml 400 ml 250 ml 300 ml # Bowel Movements 1 1 0 Result Diagram: 05/04/17 0513 05/04/17 1002 Objective Remarks GENERAL: in NAD CARDIOVASCULAR: Regular rate and rhythm without murmurs, gallops, or rubs. RESPIRATORY: Breath sounds equal bilaterally. No accessory muscle use. GASTROINTESTINAL: Abdomen soft, non-tender, nondistended. Medications and IVs Current Medications Lactated Ringer's 1,000 ml @ 30 mls/hr Q24H PRN IV SEE LABEL COMMENTS Last administered on 05/03/17at 05:55; Start 05/03/17 at 05:45; Stop 05/06/17 at 05:44 ; Status DC Sodium Chloride 500 ml @ 30 mls/hr [id number] PRN IV SEE LABEL COMMENTS; Start at 05:45; Stop 05/06/17 at 05:44; Status DC Metoprolol Tartrate (Lopressor) 25 mg HEEL REDUCER PRN PO SEE LABEL COMMENTS Last administered on 05/03/17at 06:15; Start 05/03/17 at 05:45; Stop 05/06/17 at 05:44 ; Status DC Povidone Iodine (Betadine 5% Antisepsis Kit) 1 applic HEEL REDUCER PRN EACH NARE SEE LABEL COMMENTS Last administered on 05/03/17at 06:10; Start 05/03/17 at 05:45 ; Stop 05/06/17 at 05:44; Status DC Chlorhexidine Gluconate (Chlorhexidine 2% Cloth) 3 pack HEEL REDUCER PRN TOPICAL SEE LABEL COMMENTS; Start 05/03/17 at 05:45; Stop 05/06/17 at 05:44; Status DC Insulin Human Regular (NovoLIN R INJ) See Protocol Table ... HEEL REDUCER PRN SQ SEE PROTOCOL TABLE; Start 05/03/17 at 05:45; Stop 05/03/17 at 13:31; Status DC Povidone Iodine (Betadine 7.5% Scrub) 1 applic ONCE TOPICAL Last administered on 05/03/17at 06:28; Start 05/03/17 at 05:45; Stop 05/06/17 at 05:44; Status DC Cefazolin Sodium/ Dextrose 50 ml @ 100 mls/hr HEEL REDUCER IV Last administered on 05/03/17at 06:28; Start 05/03/17 at 05:45; Stop 05/06/17 at 05:44; Status DC Tranexamic Acid 1000 mg/Sodium Chloride 110 ml @ 220 mls/hr ONCE IV Last administered on 05/03/17at 06:30; Start 05/03/17 at 07:00; Stop 05/03/17 at 07:01 ; Status DC Tranexamic Acid 1000 mg/Sodium Chloride 110 ml @ 220 mls/hr ONCE IV ; Start at 10:00; Stop 05/03/17 at 10:00; Status DC Cefazolin Sodium (Ancef Inj) 2,000 mg STK-MED ONCE .ROUTE Last administered on 05/03/17at 08:00; Start 05/03/17 at 05:56; Stop 05/03/17 at 05:57; Status DC Dextrose/Sodium Chloride 1,000 ml @ 125 mls/hr Q8H IV Last administered on at 04:51; Start 05/03/17 at 09:45; Stop 05/08/17 at 12:50; Status DC Cefazolin Sodium 1000 mg/Sodium Chloride 100 ml @ 200 mls/hr Q6H IV Last administered on 05/04/17at 00:35; Start 05/03/17 at 12:00; Stop 05/04/17 at 00:29 ; Status DC Miscellaneous Information (Post-op Orders (for Pharmacy)) STAT ONCE XX ; Start 05/03/17 at 10:00; Stop 05/03/17 at 10:01; Status DC Rivaroxaban (Xarelto) 10 mg Q24H PO Last administered on 05/08/17at 08:22; Start 05/04/17 at 09:00; Stop 05/08/17 at 12:50; Status DC Miscellaneous Medication ([facility] Pharmacy Information) UNSCH X1 XX ; Start 05/03 at 10:00; Stop 05/05/17 at 09:59; Status DC Acetaminophen/ Hydrocodone Bitart ([place] 5-325 Mg) 1 tab Q4H PRN PO PAIN LESS THAN 5 ON SCALE Last administered on 05/06/17at 11:54; Start 05/03/17 at 09:45; Stop 05/08/17 at 12:50; Status DC Acetaminophen/ Hydrocodone Bitart ([place] 5-325 Mg) 2 tab Q4H PRN PO PAIN SCALE 5 TO 10; Start 05/03/17 at 09:45; Stop 05/08/17 at 12:50; Status DC Acetaminophen (Tylenol) 650 mg Q6H PRN PO FEVER > 101; Start 05/03/17 at 09:45 ; Stop 05/08/17 at 12:50; Status DC Tranexamic Acid 1000 mg/Sodium Chloride 110 ml @ 200 mls/hr UNSCH X1 IV Last administered on 05/03/17at 09:50; Start 05/03/17 at 10:00; Stop 05/03/17 at 16:00 ; Status DC Ondansetron HCl (Zofran Inj) 4 mg Q6H PRN IVP NAUSEA OR VOMITING; Start at 10:00; Stop 05/08/17 at 12:50; Status DC Docusate Sodium (Colace) 100 mg BID PRN PO CONSTIPATION Last administered on at 20:20; Start 05/03/17 at 10:00; Stop 05/08/17 at 12:50; Status DC Zolpidem Tartrate (Ambien) 5 mg HS PRN PO SLEEP; Start 05/03/17 at 21:00; Stop 05/08/17 at 12:50; Status DC Naloxone HCl (Narcan Inj) 0.4 mg UNSCH PRN IV PUSH RESPIRATORY RATE LESS THAN 10; Start 05/03/17 at 09:45; Stop 05/08/17 at 12:50; Status DC Morphine Sulfate (Morphine 1 Mg/ ml [employer] SKILLS TRAINER) 30 mg UNSCH IV Last administered on at 09:45; Start 05/03/17 at 09:45; Stop 05/05/17 at 09:44; Status DC [employer] SKILLS TRAINER Dosage Infused (Pha) 1 Q8HR .XX Last administered on 05/04/17at 12:20; Start 05/03/17 at 14:00; Stop 05/08/17 at 12:50; Status DC Fentanyl Citrate (fentaNYL INJ) 100 mcg STK-MED ONCE .ROUTE ; Start 05/03/17 at 09:38; Stop 05/03/17 at 09:39; Status DC Morphine Sulfate (Morphine Inj) 8 mg STK-MED ONCE .ROUTE ; Start 05/03/17 at 09: 38; Stop 05/03/17 at 09:39; Status DC Morphine Sulfate (*morphine INJ PERIprocedure ONLY) 4 mg STK-MED ONCE .ROUTE Last administered on 05/03/17at 10:10; Start 05/03/17 at 10:07; Stop 05/03/17 at 10:08; Status DC Miscellaneous Information ALL NURSING DEPARTME... UNSCH PRN .XX SEE LABEL COMMENTS; Start 05/03/17 at 09:29; Stop 05/04/17 at 09:28; Status DC Insulin Aspart (NovoLOG SUPPLEMENTAL SCALE) 1 ACHS SLIDING SCALE SQ ; Start at 17:00; Stop 05/08/17 at 12:50; Status DC Amlodipine Besylate (Norvasc) 5 mg DAILY PO Last administered on 05/08/17at 08: 22; Start 05/04/17 at 09:00; Stop 05/08/17 at 12:50; Status DC Atorvastatin Calcium (Lipitor) 80 mg HS PO Last administered on 05/07/17at 20:23 ; Start 05/03/17 at 21:00; Stop 05/08/17 at 12:50; Status DC Carvedilol (Coreg) 6.25 mg BID PO Last administered on 05/08/17at 08:22; Start 05/03/17 at 21:00; Stop 05/08/17 at 12:50; Status DC Isosorbide Mononitrate (Imdur) 30 mg DAILY PO Last administered on 05/08/17at 08 :22; Start 05/04/17 at 09:00; Stop 05/08/17 at 12:50; Status DC Non-Formulary Medication 1 tab DAILY PO ; Start 05/04/17 at 09:00; Status UNV Metformin HCl (Glucophage) 500 mg DAILY PO Last administered on 05/08/17at 08:22 ; Start 05/04/17 at 09:00; Stop 05/08/17 at 12:50; Status DC Glyburide (Diabeta) 2.5 mg DAILY PO Last administered on 05/08/17at 08:21; Start 05/04/17 at 09:00; Stop 05/08/17 at 12:50; Status DC Latanoprost (Xalatan 0.005% Opt Soln) 1 drop HS EACH EYE Last administered on 05/07/17at 20:23; Start 05/03/17 at 21:00; Stop 05/08/17 at 12:50; Status DC Enalaprilat (Vasotec Inj) 2.5 mg ONCE ONCE IV PUSH Last administered on at 04:48; Start 05/04/17 at 04:30; Stop 05/04/17 at 04:31; Status DC Lactated Ringer's 1,000 ml @ As Directed STK-MED ONCE IV ; Start 05/03/17 at 12 :00; Stop 05/04/17 at 10:23; Status DC Lidocaine HCl (Xylocaine-Mpf 1% Inj) 5 ml STK-MED ONCE OTHER ; Start 05/03/17 at 12:00; Stop 05/04/17 at 10:23; Status DC Rocuronium [place] (Zemuron Inj) 50 mg STK-MED ONCE IV PUSH ; Start 05/03/17 at 12:00; Stop 05/04/17 at 10:23; Status DC Neostigmine Methylsulfate (Prostigmine Inj) 5 mg STK-MED ONCE IV PUSH ; Start at 12:00; Stop 05/04/17 at 10:23; Status DC Glycopyrrolate (Robinul Inj) 1 mg STK-MED ONCE IV PUSH ; Start 05/03/17 at 12:00 ; Stop 05/04/17 at 10:23; Status DC Phenylephrine HCl (Neosynephrine/ NS 1000 Mcg/10ml Syr) 1,000 mcg STK-MED ONCE IV ; Start 05/03/17 at 12:00; Stop 05/04/17 at 10:23; Status DC Vecuronium [place] (Norcuron 20 Mg Inj) 20 mg STK-MED ONCE IV ; Start 05/03/17 at 12:00; Stop 05/04/17 at 10:23; Status DC Dexamethasone Sodium Phosphate (Decadron Inj) 4 mg STK-MED ONCE IV ; Start 05/03 at 12:00; Stop 05/04/17 at 10:23; Status DC Ondansetron HCl (Zofran Inj) 4 mg STK-MED ONCE IV ; Start 05/03/17 at 12:00; Stop 05/04/17 at 10:23; Status DC Propofol (Diprivan 200 Mg/20 ml Inj) 200 mg STK-MED ONCE IV ; Start 05/03/17 at 12:00; Stop 05/04/17 at 10:23; Status DC Sterile Water (Sterile Water For Injection) 20 ml STK-MED ONCE IV ; Start at 12:00; Stop 05/04/17 at 10:23; Status DC Senna/Docusate Sodium (Samira-Colace) 2 tab ONCE ONCE PO Last administered on at 00:01; Start 05/04/17 at 23:15; Stop 05/04/17 at 23:25; Status DC Magnesium Hydroxide (Milk Of Magnesia Liq) 30 ml ONCE ONCE PO Last administered on 05/05/17at 00:01; Start 05/04/17 at 23:15; Stop 05/04/17 at 23:25 ; Status DC Aspirin (Ecotrin Ec) 81 mg DAILY PO Last administered on 05/08/17at 08:22; Start 05/05/17 at 09:00; Stop 05/08/17 at 12:50; Status DC Magnesium Hydroxide (Milk Of Magnesia Liq) 30 ml BID PRN PO MILD CONSTIPATION; Start 05/05/17 at 00:15; Stop 05/08/17 at 12:50; Status DC Calcium Carbonate (Tums Chew) 500 mg Q2H PRN CHEW indigestion Last administered on 05/07/17at 01:00; Start 05/07/17 at 01:00; Stop 05/08/17 at 12:50 ; Status DC Clopidogrel Bisulfate (Plavix) 75 mg DAILY PO Last administered on 05/08/17at 08 :21; Start 05/08/17 at 09:00; Stop 05/08/17 at 12:50; Status DC A/P Assessment and Plan Severe OA -Postoperative elective right hip arthroplasty on 05/03 -Management per orthopedic. Patient will be transferred to rehab facility today. Postoperative constipation. -Resolved. CAD status post 4 stent placement/Hypertension. -Continue with home medication. Plavix was restarted yesterday. Diabetes. -Continue with diabetic diet. Insulin sliding scale. Continue home by mouth medications. Continue to monitor. Urinary retention. -Patient with 1200 mL on post void residual bladder scan cefepime. Butt placed. Likely secondary to narcotics. Continue his Butt. Follow-up with urology as outpatient. Hopefully this improves off of pain meds over the next few days. Blood pressure is already low, not much room for adding Flomax. Glaucoma. -Chronic. Continue home drops. History of TIA. - Patient appears to have no history of atrial fibrillation. Denies atrial fibrillation. Continue anticoagulation as per orthopedic surgery. Follow-up with cardiology after discharge. Discharge Planning Medically cleared for DC to follow up as OP with PCP and consultants Patient scheduled to be transferred to SNF. Irma Garza MD May 08, 2017 14:52
--- NOTE | 2017-05-08 20:11 | MD ---
cc: ZURI SANTORO M.D., NORMAN B. M.D. WILSON, VANCE E. M.D. ADMISSION DATE: 05/03/2017 DISCHARGE DATE: 05/08/2017 ADMISSION DIAGNOSIS Severe osteoarthritis of the right hip, pain right hip, limb wound length discrepancy with shortening of the right leg and gait disturbance. DISCHARGE DIAGNOSIS Severe osteoarthritis of the right hip, pain right hip, limb wound length discrepancy with shortening of the right leg and gait disturbance. HISTORY A 72-year-old white male with right hip pain at least 1 year duration. He had associated the onset of his symptoms secondary to a fall which occurred at home but he was able to arise and ambulate thereafter. There was no immediate pain but the patient did not seek immediate evaluation or treatment while experiencing soreness that he localized to the anterior aspect of his right hip. His symptoms tended to wax and wane over the following few months during which time he was taking Tylenol for pain relief. He presented to the undersigned physician in August of this past year noting lingering symptoms at which time x-ray studies were completed, identifying a moderate degree of degenerative changes of the hip joint with significant narrowing of the joint space with no acute bony abnormality. The patient was diagnosed as having osteoarthritis of his right hip for which treatment alternatives were reviewed. At that time he elected to continue with conservative management utilizing Extra-Strength Tylenol noting that he was taking Plavix as prescribed by his treating deoiling machine operator. He continued to conform to conservative modalities until returning to the office in February 2017 reporting that he was becoming progressively more symptomatic with pain that had begun to interfere with all ambulatory activities. He was continuing to take Tylenol for pain management but felt that he was in need of a more definitive course of treatment. His current x-ray studies did reveal significant degenerative changes with subtotal obliteration of the joint space and early deformation of the femoral head. Findings and treatment options were reviewed with the patient, the involvement of total hip arthroplasty was outlined with emphasis being made that the decision to proceed with surgery would be left entirely to the patient's discretion. The patient considered his options in this regard and returned to the office thereafter indicating that given his progressive symptoms he was ready to proceed with treatment as had previously been discussed. In compliance with his wishes he was scheduled for admission at this time in order that she above be accomplished. His physical examination at the time of admission revealed no localizing tenderness about the lateral aspect of the right hip. There was restricted mobility of the hip joint especially involving flexion and internal rotation with pain at the extreme of motion. No sensation of crepitation or instability. Straight-leg raising was unremarkable at 80 degrees. Bladimir sign positive. Distal sensory grossly intact. Suggestion for limb length discrepancy with shortening of the right leg of at with least 1 cm magnitude, pronounced antalgic gait. HOSPITAL COURSE Prior to admission to the hospital, the patient had undergone medical evaluation and clearance for surgery as completed by his primary care physician, Dr. Zuri Santoro. Cardiology clearance per Dr. Nicola Sumner. The patient was taken to the operating room on 03 May 2017 and on that date underwent a right total hip arthroplasty completed in an uncomplicated manner. The patient was noted to have tolerated his operative procedure well. His postoperative course stable thereafter. Hemoglobin/hematocrit assessment postoperatively was 12.3 and 36.9 respectively. The patient was progressively mobilized under the guidance of physical therapy being permitted weightbearing to tolerance about the right lower extremity. Follow up examination of the surgical wound noted to be intact healing favorably, no evidence of infection. Medical followup per the hospitalist service. DVT prophylaxis initiated. field services manager consult to assist with discharge planning. The patient had expressed his desire for rehab placement upon discharge from the hospital. Plans were finalized in this regard and pending medical clearance he was scheduled for transfer on the third postoperative day at which time he was noted to be making steady progress with regards to his rehab program. He was scheduled be seen in office in follow-up in approximately 4 weeks. His condition at the time of transfer was stable. Prognosis favorable DISCHARGE MEDICATIONS: Hydrocodone 5/325 #60. The patient was also to initiate Eliquis as prescribed per Dr. Sumner, his treating deoiling machine operator. MD NERY Doty/RAISSA /6:21 AM /8:00 PM
== END 2017-05-08 12:49 | DRG 470 ==
LOC: HSDI 05:16 → N06B 12:28
PROVIDERS: ADMIT Orthopaedic Surgery; ATTEND Orthopaedic Surgery
PROC: 0SR903Z Replacement of Right Hip Joint with Ceramic Synthetic Substitute, Open Approach (ICD-10-PCS; principal; 2017-05-03 06:32)
PROC: 0T9B70Z Drainage of Bladder with Drainage Device, Via Natural or Artificial Opening (ICD-10-PCS; 2017-05-05)
DX: M16.11 Unilateral primary osteoarthritis, right hip (principal); E11.9 Type 2 diabetes mellitus without complications; I10 Essential (primary) hypertension; E78.5 Hyperlipidemia, unspecified; M21.751 Unequal limb length (acquired), right femur; G47.30 Sleep apnea, unspecified; H40.9 Unspecified glaucoma; I25.10 Atherosclerotic heart disease of native coronary artery without angina pectoris; K59.09 Other constipation; R33.9 Retention of urine, unspecified; Z79.84 Long term (current) use of oral hypoglycemic drugs; Z86.73 Personal history of transient ischemic attack (TIA), and cerebral infarction without residual deficits; Z87.891 Personal history of nicotine dependence; Z95.5 Presence of coronary angioplasty implant and graft; Z96.652 Presence of left artificial knee joint
CPT/HCPCS: 73501; 80048; 82948; 85014; 85018; 86850; 86900; 86901; 88305; 88311; 94150; C1776; J0690; J1100; J2270; J2370; J2405; J2710; J3010; J7120

== ENCOUNTER 2017-06-25 01:22 | Emergency (ER) | payer MEDICARE, BC ==
[~2017-06-25] VITALS: Ht 167.6 cm; Wt 108.0 kg
[~2017-06-25 01:22] MED LIST changes: +ADJUSTABLE COMM1 MIS; +HYDR-3516 PO; +WALKER WHEELS/F1 MIS
[2017-06-25 01:35] VITALS: BP 202/112; PULSE 76; RESP 20; TEMP 97.8; O2SAT 99
[2017-06-25 02:11] VITALS: BP 144/88; PULSE 75; RESP 18; O2SAT 95
[2017-06-25] MEDS ORDERED: TAMS0.4C4 (02:17)
[2017-06-25] MEDS ORDERED: LATA0.002 EACH EYE (02:17)
[2017-06-25] MEDS ORDERED: LOSA100T PO (02:17)
--- NOTE | 2017-06-25 02:27 | PD ---
HPI . Butt dysfunction Chief Complaint: Complaint Time Seen by Provider: 01:47 Travel History International Travel<30 days: No Contact w/Intl Traveler<30days: No Traveled to known affect area: No History of Present Illness HPI Patient presents complaining with dysfunction of his Butt catheter. He states that urine started leaking around the catheter tonight. He is asking that we remove the catheter and see if he can urinate. He reports the urge to urinate. Symptom onset was tonight. Symptoms are mild. Symptoms are exacerbated by a nonfunctioning Butt catheter. PFSH Past Medical History Hx Anticoagulant Therapy: Yes Arthritis: Yes Asthma: No Blood Disorders: No Anxiety: No Depression: No Heart Rhythm Problems: No Cancer: No Cardiovascular Problems: Yes (Stents X 4) High Cholesterol: No Chemotherapy: No Chest Pain: No Congestive Heart Failure: No COPD: No Cerebrovascular Accident: Yes (TIA X2) Diabetes: Yes (METFORMIN) Patient Takes Glucophage: Yes (06/24/2017 2300) Endocrine: No Gastrointestinal Disorders: Yes (ULCER HX) Glaucoma: Yes Genitourinary: No Hepatitis: No Hiatal Hernia: Yes Hypertension: Yes Immune Disorder: No Kidney Stones: No Musculoskeletal: Yes (ARTHRITIS, BACK ISSUES, R hip) Neurologic: Yes (TIA X 2, 3 year ago) Psychiatric: No Reproductive: No Respiratory: Yes (SLEEP APNEA/ CPAP) Integumentary: No Radiation Therapy: No Renal Failure: No Thyroid Disease: No Ulcer: Yes Tetanus Vaccination: < 5 Years Influenza Vaccination: No Past Surgical History Abdominal Surgery: Yes (UMB. HERNIA REP., APPY) AICD: No Appendectomy: Yes Body Medical Devices: CARDIAC STENTS X 4 Cardiac Surgery: Yes (CARDIAC STENTS X4) Ear Surgery: No Endocrine Surgery: No Eye Surgery: No Genitourinary Surgery: No Insulin Pump: No Joint Replacement: Yes (LEFT KNEE) Neurologic Surgery: Yes (CERVICAL DISCECTOMY, LUMBAR SPUR REM) Oral Surgery: No Pacemaker: No Thoracic Surgery: No Other Surgery: Yes Social History Alcohol Use: No Tobacco Use: No (FORMER) Substance Use: No Allergies-Medications (Allergen,Severity, Reaction): Coded Allergies: No Known Allergies (Verified Allergy, Unknown, 06/25/17) Reported Meds & Prescriptions Reported Meds & Active Scripts Active Adjustable Commode 3-in-1 (Device) 1 Mis Mis Ea .XX DIRECTED use as directed Walker with Front Wheels (Device) 1 Mis Mis Ea .XX DIRECTED use as directed Reported Latanoprost Opth Drops (Latanoprost) 0.005% Drops 1 Drop EACH EYE HS Refrigerate until opened. Losartan (Losartan Potassium) 100 Mg Tab 100 Mg PO DAILY Tamsulosin (Tamsulosin HCl) 0.4 Mg Cap 0.4 Mg HS Saw [place] 500 Mg Capsule 450 Mg PO DAILY Fish Oil ([place]-3 Fatty Acids) 1,000 Mg Cap 1,200 Aspirin 81 (Aspirin) 81 Mg Tabdr 81 Mg PO DAILY Atorvastatin (Atorvastatin Calcium) 80 Mg Tab 80 Mg PO HS Glyburide-Metformin 2.5-500 Mg Tab 1 Tab PO DAILY Take with a meal Isosorbide Mononitrate ER (Isosorbide Mononitrate) 30 Mg Dean 30 Mg PO DAILY Amlodipine (Amlodipine Besylate) 5 Mg Tab 5 Mg PO DAILY Carvedilol 6.25 Mg Tab 6.25 Mg PO BID Review of Systems Except as stated in HPI: all other systems reviewed are Neg Physical Exam Narrative GENERAL: Awake and alert and in no acute distress. SKIN: Warm and dry. HEAD: Normocephalic/atraumatic. EYES: Pupils are equal. Extraocular movements are intact. NECK: Normal range of motion. CARDIOVASCULAR: Regular rate and rhythm. RESPIRATORY: Nonlabored respirations. ABDOMEN: Abdomen is soft. Positive suprapubic discomfort. : Normal uncircumcised male. Butt catheter is in place. Scant urine in the collection bag. MUSCULOSKELETAL: Atraumatic. NEUROLOGICAL: Nonfocal. PSYCHIATRIC: Appropriate mood and affect. Data Data Last Documented VS Vital Signs Date Time Temp Pulse Resp B/P (MAP) Pulse Ox O2 Delivery O2 Flow Rate FiO2 06/25/17 02:11 75 18 144/88 (106) 95 Room Air 06/25/17 01:35 97.8 Orders Orders Remove Urinary Catheter .ONCE (06/25/17 01:55) Urinalysis - C+S If Indicated (06/25/17 02:22) Labs Laboratory Tests Test 06/25/17 02:26 Urine Color YELLOW Urine Turbidity CLEAR Urine pH 5.5 Urine Specific [place] 1.016 Urine Protein 30 mg/dL Urine Glucose (UA) 70 mg/dL Urine Ketones NEG mg/dL Urine Occult Blood LARGE Urine Nitrite NEG Urine Bilirubin NEG Urine Urobilinogen LESS THAN 2.0 MG/DL Urine Leukocyte Esterase MOD Urine RBC /hpf Urine WBC 8 /hpf Urine Mucus FEW /lpf Microscopic Urinalysis Comment CULT NOT INDICATED MDM Medical Decision Making Medical Screen Exam Complete: Yes Emergency Medical Condition: Yes Differential Diagnosis Differential diagnosis includes obstruction by blood, obstruction by sediment Narrative Course This patient presents complaining of Butt dysfunction. He has started leaking urine around the Butt tonight. He has asked that we remove it and then see if he can urinate. That has been done and he is able to urinate. UA>>blood, mod LE, innumerable RBCs, 8 WBCs, mucous He will be discharged home with instructions to return if he develops difficulty urinating. Diagnosis Primary Impression: Butt catheter dysfunction Additional Instructions: Return if you develop any difficulty urinating Disposition: 01 DISCHARGE HOME Condition: Stable Sheela Uriarte MD Jun 25, 2017 02:27
[2017-06-25 02:59] LABS: BILIRUBIN, URINE NEG (NEG); BLOOD, URINE LARGE (NEG); GLUCOSE,URINE 70 mg/dL (NEG); KETONE, URINE NEG (NEG); MUCUS URINE FEW /lpf (OCC); NITRITE,URINE NEG (NEG); PH, URINE 5.5 (5.0-8.5); URINE COLOR YELLOW (YELLW/STRAW); URINE LEUKOCYTE ESTERASE MOD (NEG)
== END 2017-06-25 04:24 | disposition home or self-care (01) ==
LOC: NEPE 01:22
DX: T83.011A Breakdown (mechanical) of indwelling urethral catheter, initial encounter (principal); M19.90 Unspecified osteoarthritis, unspecified site; E11.9 Type 2 diabetes mellitus without complications; I10 Essential (primary) hypertension; H40.9 Unspecified glaucoma; G47.30 Sleep apnea, unspecified; Z86.73 Personal history of transient ischemic attack (TIA), and cerebral infarction without residual deficits; Z95.5 Presence of coronary angioplasty implant and graft; Z79.82 Long term (current) use of aspirin; Z79.84 Long term (current) use of oral hypoglycemic drugs
CPT/HCPCS: 81001; 99283

== ENCOUNTER 2017-06-25 13:20 | Emergency (ER) | payer MEDICARE, BC ==
[~2017-06-25] VITALS: Ht 167.6 cm; Wt 109.2 kg
[~2017-06-25 13:20] MED LIST changes: +LATA0.002 EACH EYE; +LOSA100T PO; +TAMS0.4C4
[2017-06-25 13:36] VITALS: BP 167/81; PULSE 86; RESP 16; TEMP 97.8; O2SAT 97
--- NOTE | 2017-06-25 14:17 | PD ---
HPI Chief Complaint: Complaint Time Seen by Provider: 14:10 Travel History International Travel<30 days: No Contact w/Intl Traveler<30days: No Traveled to known affect area: No History of Present Illness HPI 72yo M with PMH of BPH presents to the ED with c/o urinary retention. Pt said he has had a few dempsey placed since his right hip replacement in April. He was seen at [facility] ED this morning at 1am and had his dempsey catheter removed because urine was leaking around it. Pt was able to urinate a small amount after and thought he would be fine. However, he said he now is unable to urinate and wants another dempsey place. Pt has urologist Dr. Bustamante who is planning to do a procedure and will see him this Monday. Denies any fever, chest pain, sob, n/v, abdominal pain, focal weakness or numbness. Pt had UA completed this morning. PFSH Past Medical History Hx Anticoagulant Therapy: No Arthritis: Yes Asthma: No Blood Disorders: No Anxiety: No Depression: No Heart Rhythm Problems: No Cancer: No Cardiovascular Problems: Yes (htn on meds, stents in place x 4) High Cholesterol: No Chemotherapy: No Chest Pain: No Congestive Heart Failure: No COPD: No Cerebrovascular Accident: Yes (tia) Diabetes: Yes (METFORMIN) Patient Takes Glucophage: Yes (06/25/17 0500) Endocrine: No Gastrointestinal Disorders: Yes (ULCER HX) Glaucoma: Yes Genitourinary: No Hepatitis: No Hiatal Hernia: Yes Hypertension: Yes Immune Disorder: No Kidney Stones: No Musculoskeletal: Yes (ARTHRITIS, BACK ISSUES, R hip) Neurologic: Yes Psychiatric: No Reproductive: No Respiratory: Yes (SLEEP APNEA/ CPAP) Integumentary: No Radiation Therapy: No Renal Failure: No Thyroid Disease: No Ulcer: Yes Tetanus Vaccination: < 5 Years Influenza Vaccination: No Past Surgical History Abdominal Surgery: Yes (UMB. HERNIA REP., APPY) AICD: No Appendectomy: Yes Body Medical Devices: CARDIAC STENTS X 4 Cardiac Surgery: Yes (CARDIAC STENTS X4) Coronary Stent: Yes Ear Surgery: No Endocrine Surgery: No Eye Surgery: No Genitourinary Surgery: No Insulin Pump: No Joint Replacement: Yes (LEFT KNEE, RIGHT HIP) Neurologic Surgery: Yes (CERVICAL DISCECTOMY, LUMBAR SPUR REM) Oral Surgery: No Pacemaker: No Thoracic Surgery: No Other Surgery: Yes Social History Alcohol Use: No Tobacco Use: No (FORMER) Substance Use: No Allergies-Medications (Allergen,Severity, Reaction): Coded Allergies: No Known Allergies (Verified Allergy, Unknown, 06/25/17) Reported Meds & Prescriptions Reported Meds & Active Scripts Active Adjustable Commode 3-in-1 (Device) 1 Mis Mis Ea .XX DIRECTED use as directed Walker with Front Wheels (Device) 1 Mis Mis Ea .XX DIRECTED use as directed Reported Latanoprost Opth Drops (Latanoprost) 0.005% Drops 1 Drop EACH EYE HS Refrigerate until opened. Losartan (Losartan Potassium) 100 Mg Tab 100 Mg PO DAILY Tamsulosin (Tamsulosin HCl) 0.4 Mg Cap 0.4 Mg HS Saw [place] 500 Mg Capsule 450 Mg PO DAILY Fish Oil ([place]-3 Fatty Acids) 1,000 Mg Cap 1,200 Aspirin 81 (Aspirin) 81 Mg Tabdr 81 Mg PO DAILY Atorvastatin (Atorvastatin Calcium) 80 Mg Tab 80 Mg PO HS Glyburide-Metformin 2.5-500 Mg Tab 1 Tab PO DAILY Take with a meal Isosorbide Mononitrate ER (Isosorbide Mononitrate) 30 Mg Dean 30 Mg PO DAILY Amlodipine (Amlodipine Besylate) 5 Mg Tab 5 Mg PO DAILY Carvedilol 6.25 Mg Tab 6.25 Mg PO BID Review of Systems Except as stated in HPI: all other systems reviewed are Neg Physical Exam Narrative GENERAL: 72yo M in mild distress. SKIN: Focused skin assessment warm/dry. HEAD: Atraumatic. Normocephalic. CARDIOVASCULAR: Regular rate and rhythm. No murmur appreciated. RESPIRATORY: No accessory muscle use. Clear to auscultation. Breath sounds equal bilaterally. GASTROINTESTINAL: Abdominal exam was deferred until dempsey placement and was soft , nondistended and not tender to palpation. No rebound tenderness or guarding. MUSCULOSKELETAL: No obvious deformities. No clubbing. No cyanosis. NEUROLOGICAL: Awake and alert. No obvious cranial nerve deficits. Motor grossly within normal limits. Normal speech. PSYCHIATRIC: Appropriate mood and affect; insight and judgment normal. Data Data Last Documented VS Vital Signs Date Time Temp Pulse Resp B/P (MAP) Pulse Ox O2 Delivery O2 Flow Rate FiO2 06/25/17 13:36 97.8 86 16 167/81 (109) 97 Orders Orders Urinary Catheter Management [email or web address] (06/25/17 14:14) [facility] Medical Decision Making Medical Screen Exam Complete: Yes Emergency Medical Condition: Yes Differential Diagnosis Urinary retention vs. BPH Narrative Course 72yo M here with inability to urinate after dempsey removal this morning. Pt had dempsey catheter placed and 1100cc of urine came out. Pt currently feels great and denies any pain. Pt has appointment with his urologist this monday for possible procedure. He had UA completed already this morning. Pt is to follow up with urology and be discharge with dempsey and leg bag. Return precautions given. Diagnosis Primary Impression: Urinary retention Patient Instructions: General Instructions Departure Forms: Tests/Procedures Additional Instructions: Please follow up with your urologist this Monday. Please return to the ED if symptoms worsen. Med/Other Pt SpecificInfo: No Change to Meds Disposition: 01 DISCHARGE HOME Condition: Stable KellySonya Jun 25, 2017 14:17
[2017-06-25 15:33] VITALS: BP 133/71
== END 2017-06-25 15:47 | disposition home or self-care (01) ==
LOC: PHED 13:20
DX: R33.9 Retention of urine, unspecified (principal); M19.90 Unspecified osteoarthritis, unspecified site; I10 Essential (primary) hypertension; E11.9 Type 2 diabetes mellitus without complications; H40.9 Unspecified glaucoma; G47.30 Sleep apnea, unspecified; Z86.73 Personal history of transient ischemic attack (TIA), and cerebral infarction without residual deficits; Z87.891 Personal history of nicotine dependence; Z79.82 Long term (current) use of aspirin
CPT/HCPCS: 51702